=== PATIENT | female | born 1960 | race Two or more races ===

== ENCOUNTER 2024-07-09 10:56 | Inpatient (IN) | payer OTHER, MEDICAID, MEDICARE, SELFPAY ==
[2024-07-09] VITALS (11 sets, daily range): BP systolic 141–162; BP diastolic 54–77; PULSE 77–83; RESP 15–25; TEMP 36.6–37.2; O2SAT 88–96; BMI 29.7
--- NOTE | 2024-07-09 | XR_ITS ---
Examination: IR fluoroscopically guided placement left chest tube Fluoroscopy AP chest single view Exam date and time: July 09, 2024 1458 hours INDICATIONS: Significant pneumothorax post thoracentesis today shortness of breath TECHNIQUE AND FINDINGS: Informed consent provided. Timeout performed. Skin prepped over the left chest and sterile drape applied hand hygiene 1% lidocaine administered for local anesthesia Utilizing fluoroscopic guidance 9 Khmer chest tube placed in the left hemithorax in satisfactory position with significant reexpansion of the lung under fluoroscopic visualization Fluoroscopy 0.8 minute radiation dose 5.40 milligray 1 spot fluoroscopic chest film Estimated blood loss 0 cc IMPRESSION: Successful IR fluoroscopically guided placement left chest tube in satisfactory position
--- NOTE | 2024-07-09 11:16 | EKG_ITS ---
[facility] Test Date: 2024-07-09 Pat Name: ASHLEY PERRY Department: Room: - Gender: Female Digitizer Operator: : [id number] Requested By: Dawit Georges (CONCRETE WALL GRINDER OPERATOR) Order Number: [id number] Reading MD: Dawit Georges (CONCRETE WALL GRINDER OPERATOR) Measurements Intervals [place] Rate: 78 P: 41 TN: 131 QRS: -21 QRSD: 83 T: -43 QT: 407 QTc: 464 Interpretive Statements SINUS RHYTHM BORDERLINE LEFT AXIS DEVIATION [QRS AXIS < -20] LEFT VENTRICULAR HYPERTROPHY AND ST-T CHANGE [VOLTAGE CRITERIA PLUS ST/T ABNORMALITY] Compared to ECG 02/17/2023 18:04:56 ST (T wave) deviation now present /store/S0/[id number]/[id number].pdf
--- NOTE | 2024-07-09 11:16 | XR_ITS ---
Examination: PA lateral chest 2 views TECHNIQUE: Upright PA lateral chest 2 views Exam date and time: July 09, 2024 at 1137 hours INDICATIONS: Increasing shortness of breath for low O2 saturation today. FINDINGS: Mild chronic heart failure pattern, enlarged cardiac contour with prominent vascular congestion and septal edema at the right lung base Large left pleural effusion IMPRESSION: Mild heart failure pattern Large left pleural effusion
--- NOTE | 2024-07-09 11:21 | EDRME_ITS ---
Rapid Medical Screening Exam [facility] Arrival date/time: 07/09/24 10:56 64-year-old female ESRD on dialysis with CHF presents to the emergency department complains of shortness of breath intermittently for the last few months Chief Complaint: Shortness of Breath/Dyspnea Vital signs: Vital Signs Temperature 98.3 F 07/09/24 11:13 Pulse Rate 81 07/09/24 11:13 Respiratory Rate 25 H 07/09/24 11:13 Blood Pressure 141/54 H 07/09/24 11:13 Pulse Oximetry (%) 88 L 07/09/24 11:13 Oxygen Delivery Method Room Air 07/09/24 11:13
[2024-07-09 11:44] LABS: Basophils % (Auto) 0 % (0-2.5); Eosinophils # (Auto) 0.2 Thou/mm3 (0.0-0.5); Eosinophils % (Auto) 2 % (0-10); Hematocrit 35.9 % (36.0-46.0); Hemoglobin 11.7 g/dL (12.0-16.0); Immature Granulocytes % (Auto) 1 % (0-0); Immature Granulocytes Auto 0.05 Thou/mm3 (0.00-0.00); Lymphocytes # (Auto) 1.6 Thou/mm3 (1.0-4.8); Lymphocytes % (Auto) 16 % (10-50); Mean Corpuscular HGB Conc 32.6 g/dl (31.0-37.0); Mean Corpuscular Hemoglobin 29.2 pg (25.0-35.0); Mean Corpuscular Volume 90 fL (80-100); Monocytes # (Auto) 0.7 Thou/mm3 (0.0-0.8); Monocytes % (Auto) 7 % (0-12); Neutrophils # (Auto) 7.7 Thou/mm3 (1.8-7.7); Neutrophils % (Auto) 76 % (37-80); Nucleated Red Blood Cell % 0 /100 WBC (0); Platelet Count 225 Thou/mm3 (140-440); RDW Standard Deviation 44.7 fL (36.4-46.3); Red Blood Count 4.01 Miln/mm3 (4.00-5.20); White Blood Count 10.2 Thou/mm3 (3.6-11.0)
[2024-07-09 11:53] LABS: Partial Thromboplastin Time 28.1 Seconds (22.0-36.0)
[2024-07-09 11:55] LABS: Alanine Aminotransferase 9 U/L (10-49); Albumin, Serum 3.8 gm/dL (3.4-4.8); Alkaline Phosphatase 117 U/L (46-116); Anion Gap 8 (7-16); Aspartate Amino Transferase 19 U/L (0-34); BUN/Creatinine Ratio 6 Ratio (12-20); Bilirubin,Total 0.6 mg/dL (0.3-1.2); Blood Urea Nitrogen 33 mg/dL (9-23); Calcium 9.7 mg/dL (8.3-10.6); Calcium (Corrected) 9.9 mg/dL (8.5-10.1); Carbon Dioxide 31.5 mMol/L (20.0-31.0); Chloride 100 mMol/L (98-107); Estimated Creatinine Clearance 8.5 mL/min (>60); Globulin 3.8 gm/dL (2.3-3.5); Glucose 241 mg/dL (74-106); Magnesium 2.6 mg/dL (1.6-2.6); Osmolality,Calculated 292 (275-295); Potassium 4.9 mMol/L (3.4-5.1); Sodium 139 mMol/L (136-145); Total Protein 7.6 gm/dL (5.7-8.2); Troponin I < 0.020 ng/mL (0.0-0.045); eGFR 7 See Note
[2024-07-09 11:56] LABS: B-Type Natriuretic Peptide 1755 pg/mL (0-100)
--- NOTE | 2024-07-09 12:13 | XR_ITS ---
Examination: Ultrasound-guided left thoracentesis Ultrasound right hemithorax Ultrasound left hemithorax Exam date and time: Generally 04/09/2023 1250 hours INDICATIONS: Difficulty breathing this week, heart failure pattern with large left pleural effusion on chest x-ray today TECHNIQUE AND FINDINGS: Sonographic images right and left hemithoraces Large left pleural effusion No significant right pleural effusion Informed consent provided. Timeout performed. Skin prepped over the left hemithorax and sterile drape applied hand hygiene ultrasound sterile technique 1% lidocaine administered for local anesthesia Utilizing ultrasonographic guidance 5 Malian catheter placed in the left pleural space 1050 cc pleural fluid removed Estimated blood loss 0 cc IMPRESSION: Successful ultrasound-guided left thoracentesis, 1050 cc pleural fluid removed
--- NOTE | 2024-07-09 13:13 | XR_ITS ---
Examination: Upright PA chest single view TECHNIQUE: Upright PA chest single view Exam date and time: July 08, 2024 1319 hours INDICATIONS: Post left thoracentesis FINDINGS: Apical lateral left pneumothorax estimated 15% Pneumonia both lungs Normal heart size IMPRESSION: Apical lateral pneumothorax estimated 15%
--- NOTE | 2024-07-09 13:50 | EDNOTE_ITS ---
ED SOB =RME/HPI General Chief Complaint: Shortness of Breath/Dyspnea Stated Complaint: SOB WITH LOW O2 SAT; PCP SENT Time Seen by Provider: 07/09/24 13:45 Arrival date/time: 07/09/24 10:56 RME / HPI RME / HPI Narrative: 64-year-old female ESRD, hypertension, diabetes mellitus on dialysis with CHF presents to the emergency department complains of shortness of breath intermittently for the last few months. Also complained of nonproductive cough. She had dialysis yesterday. Patient denies any chest pain. Denies any fever. No medication was taken prior to arrival. Related Data Home Medications ?Medication ?Instructions ?Recorded ?Confirmed aspirin 81 mg tablet,delayed 81 mg PO QDAY 03/04/19 02/18/23 release (Aspir-) metoprolol succinate 50 mg 50 mg PO DAILY 04/12/22 02/18/23 tablet,extended release 24 hr cetirizine 10 mg tablet 10 mg PO DAILY 11/26/22 02/18/23 furosemide 20 mg tablet 20 mg PO DAILY 11/26/22 02/18/23 omeprazole 20 mg capsule,delayed 20 mg PO DAILY 11/26/22 02/18/23 release Allergies Allergy/AdvReac Type Severity Reaction Status Date / Time No Known Allergies Allergy Verified 07/09/24 10:58 Review of Systems Review of Systems Narrative Review of Systems: Review of system reviewed and within normal limits except mentioned in HPI ED Exam Narrative Physical exam: VITAL SIGNS: Reviewed. GENERAL APPEARANCE: Alert and interactive, follows commands, no acute distress, HEAD AND FACE: Non-traumatic. ENT: PERRL, pink conjunctivitis, eyelid no trauma, Mucous membrane moist. NECK: Supple, nontender, no nuchal rigidity. CHEST: No tenderness, no crepitus, no paradoxical movement, no retractions. LUNGS:Symmetric, + rales, no wheezing, no ronchi, no stridor, decreased breath sound on the left lung HEART: Regular rate, regular rhythm, no murmur, no gallops. ABDOMEN: Soft, positive bowel sounds, nondistended, no guarding, nontender, no rebound, no masses, RECTAL: Deferred. GENITAL: Deferred. NEUROLOGICAL: Gross motor function intact sensory function intact, Appropriate for age. MUSCULOSKELETAL: low back nontender, full range of motion. EXTREMITIES: Positive thrill, left AV fistula, nontender, full range of motion. SKIN: Color pink, dry, no rash, no lacerations, no abrasions, no contusions. LYMPHATICS: Deferred. Course Quality Measures none Orders Category Date Time Status COVID-19 Screening Questionnaire NOW Care 07/09/24 16:05 Active Chest Tube to Low Suction Routine Care 07/09/24 16:03 Ordered Decision to Admit X1 Care 07/09/24 16:05 Active EKG (ED ONLY) *Do not use* NOW Care 07/09/24 11:16 Completed Consult to Nephrology Stat Cons 07/09/24 15:59 Ordered EKG (ED Only) Stat Exams 07/09/24 11:16 Draft IR chest tube insertion Stat Exams 07/09/24 Taken US thoracentesis Stat Exams 07/09/24 12:13 Completed XR chest 1V Stat Exams 07/09/24 13:58 Completed XR chest 1V portable Routine Exams 07/09/24 19:00 Ordered XR chest 1V post procedure Stat Exams 07/09/24 13:13 Completed XR chest 2V Stat Exams 07/09/24 11:16 Completed Amylase,Pleural Fluid Routine Lab 07/09/24 13:49 Ordered B-Type Natriuretic Peptide Stat Lab 07/09/24 11:31 Completed Body Fld Cult w Tita & Gram St Routine Lab 07/09/24 13:49 Ordered CBC Stat Lab 07/09/24 11:31 Completed Comprehensive Metabolic Panel Stat Lab 07/09/24 11:31 Completed Glucose,Pleural Fluid Routine Lab 07/09/24 13:49 Ordered LDH,Pleural Fluid Routine Lab 07/09/24 13:49 Ordered Magnesium Stat Lab 07/09/24 11:31 Completed Partial Thromboplastin Time Stat Lab 07/09/24 11:31 Completed Pleural Fld Cell Count Diff Routine Lab 07/09/24 13:49 Ordered Protein Total,Pleural Fluid Routine Lab 07/09/24 13:49 Ordered Prothrombin Time with INR Stat Lab 07/09/24 11:31 Completed Troponin I Stat Lab 07/09/24 11:31 Completed Lidocaine 1% Pf 30 ml [Xylocaine 1% Pf 30 ml] Med 07/09/24 12:40 Discontinued 30 ml .ROUTE .STK-MED ONE Lidocaine 1% Pf 30 ml [Xylocaine 1% Pf 30 ml] Med 07/09/24 15:18 Discontinued 30 ml .ROUTE .STK-MED ONE Lidocaine 1% Pf 30 ml [Xylocaine 1% Pf 30 ml] Med 07/09/24 15:30 Discontinued 30 ml INFL X1 ONE NALOXONE INJ (Vial) [Narcan Inj (Vial)] Med 07/09/24 15:17 Discontinued 0.4 mg .ROUTE .STK-MED ONE Ondansetron Inj [Zofran Inj] Med 07/09/24 15:18 Discontinued 4 mg .ROUTE .STK-MED ONE fentaNYL INJ [Sublimaze Inj] Med 07/09/24 15:18 Discontinued 200 mcg .ROUTE .STK-MED ONE fentaNYL INJ [Sublimaze Inj] Med 07/09/24 15:11 Discontinued 50 mcg IVP X1 ONE fentaNYL INJ [Sublimaze Inj] Med 07/09/24 15:32 Discontinued 75 mcg IVP X1 ONE Vital Signs Vital signs: Vital Signs Temperature 98.3 F 07/09/24 11:13 Pulse Rate 81 07/09/24 11:13 Respiratory Rate 25 H 07/09/24 11:13 Blood Pressure 141/54 H 07/09/24 11:13 Pulse Oximetry (%) 88 L 07/09/24 11:13 Oxygen Delivery Method Room Air 07/09/24 11:13 Shortness of Breath / Dyspnea MDM Narrative MDM Narrative:: 64-year-old female ESRD, hypertension, diabetes mellitus on dialysis with CHF presents to the emergency department complains of shortness of breath intermittently for the last few months. Also complained of nonproductive cough. She had dialysis yesterday. Patient denies any chest pain. Denies any fever. No medication was taken prior to arrival. Chest x-ray showed large pleural effusion on the left. Patient underwent thoracentesis, was able to remove 1025 cc. Patient was noted to be satting 88% on room air. Currently satting 96% on 2 L. Initial postthoracentesis x-ray showed 5% pneumothorax, after few hours, repeat chest x-ray showed worsening of pneumothorax this time 25% I spoke with Dr Tovar, IR, radiologist, and for chest tube insertion Spoke with Dr. Roman, communications systems engineer, and will see the patient thank you Dr. Patient data External records reviewed:: None Clinical information provided by:: patient and family Social determinants that could affect healthcare access:: none Patient has the following chronic illnesses:: Diabetes hypertension ESRD How is presenting disease/condition affected by chronic disease/condition?: exacerbated by Evaluation data The following diagnostics were reviewed and interpreted by me:: lab results and radiology exam(s) Lab and/or radiology exams considered but not ordered:: None Interpretation Summary: See MDM for the results Medications / Prescriptions Medications or Prescriptions considered but not ordered:: None Medication administrations:: Medication Administration History Discontinued Medications Fentanyl Citrate (Fentanyl Cit Inj 50 Mcg/Ml Amp 2ml) 50 mcg IVP X1 ONE Stop: 07/09/24 15:12 Last Admin: 07/09/24 16:03 Dose: Not Given Documented By: EC Non-Admin Reason: Cancelled by Provider Fentanyl Citrate (Fentanyl Cit Inj 50 Mcg/Ml Amp 2ml) Confirm Administered Dose 200 mcg .ROUTE .STK-MED ONE Stop: 07/09/24 15:19 Last Admin: 07/09/24 16:03 Dose: Not Given Documented By: EC Non-Admin Reason: Duplicate Medication on eMAR Fentanyl Citrate (Fentanyl Cit Inj 50 Mcg/Ml Amp 2ml) 75 mcg IVP X1 ONE Stop: 07/09/24 15:33 Last Admin: 07/09/24 15:32 Dose: 75 mcg Documented By: EC Lidocaine HCl (Lidocaine Inj Pf 1% 30 Ml Vial) Confirm Administered Dose 30 ml .ROUTE .STK-MED ONE Stop: 07/09/24 12:41 Last Admin: 07/09/24 16:03 Dose: Not Given Documented By: EC Non-Admin Reason: Duplicate Medication on eMAR Lidocaine HCl (Lidocaine Inj Pf 1% 30 Ml Vial) Confirm Administered Dose 30 ml .ROUTE .STK-MED ONE Stop: 07/09/24 15:19 Last Admin: 07/09/24 16:03 Dose: Not Given Documented By: EC Non-Admin Reason: Duplicate Medication on eMAR Lidocaine HCl (Lidocaine Inj Pf 1% 30 Ml Vial) 30 ml INFL X1 ONE Stop: 07/09/24 15:31 Last Admin: 07/09/24 16:05 Dose: 30 ml Documented By: EC Comments: placed on sterile field Naloxone HCl (Naloxone Inj 0.4 Mg/Ml Vial) Confirm Administered Dose 0.4 mg .ROUTE .STK-MED ONE Stop: 07/09/24 15:18 Last Admin: 07/09/24 16:03 Dose: Not Given Documented By: EC Non-Admin Reason: Duplicate Medication on eMAR Ondansetron HCl (Ondansetron Inj 2 Mg/Ml Inj 2 Ml) Confirm Administered Dose 4 mg .ROUTE .STK-MED ONE Stop: 07/09/24 15:19 Last Admin: 07/09/24 16:03 Dose: Not Given Documented By: EC Non-Admin Reason: Duplicate Medication on eMAR Zofran, fentanyl, Consultations Consultation(s) initiated? (list below): Yes Consultation #1 (Physician, Specialty, Details): Dr. Roman communications systems engineer discussed the case thank you DrAbdon Diagnosis Shortness of Breath Differential Diagnosis: other (Shortness of breath, fluid overload, pleural effusion, pneumothorax) Most likely diagnosis given after review of the tests above:: ESRD, pneumothorax Admission Indicated Admission indicated?: indicated Explain why admission is indicated or not indicated:: Patient is to be admitted for further management Admission Request Was there a request for admission?: Yes Admission Attestation Admission request attestation: Discussed case with [Dr. Torres] from Hospitalist service regarding admission. Discussed patients ED course, exam findings, labs, and radiology results. The Hospitalist [agrees,] to accept the patient for admission. Disposition Plan Disposition Plan: Admit Discharge Plan Plan Patient Disposition: Admit Acute Care w/in Hospital Disposition Comment: Stable Prescriptions/Referrals Prescriptions/Med Rec: No Action aspirin [Aspir-81] 81 mg Tablet,Delayed Release (Dr/Ec) 81 mg PO QDAY Hold Instructions: Resume on 04/15/22. metoprolol succinate 50 mg tablet extended release 24 hr 50 mg PO DAILY cetirizine 10 mg tablet 10 mg PO DAILY omeprazole 20 mg capsule,delayed release(DR/EC) 20 mg PO DAILY furosemide 20 mg tablet 20 mg PO DAILY Referrals: Isaias Pop PA-C [Primary Care Provider] - Problem List Clinical Impression: ESRD (end stage renal disease) on dialysis, Pneumothorax Patient/Caregiver Discharge Instructions Education Materials: Thoracentesis Dc Print Language: Portuguese Stand Alone Forms: [facility] Award Info., Patient Portal Info Letter
--- NOTE | 2024-07-09 13:58 | XR_ITS ---
Examination: AP chest single view TECHNIQUE: AP portable chest single view Exam date and time: July 09, 2024 1428 hours INDICATIONS: Postthoracentesis pneumothorax FINDINGS: Left apical lateral inferior pneumothorax, estimated 25% Heart is midline Bilateral pneumonia IMPRESSION: Left pneumothorax, estimated 25%, suggest continued follow-up
--- NOTE | 2024-07-09 15:18 | PC.NURSE ---
PT TO SPECIAL PROCEDURES AT THIS TIME. REPORT GIVEN TO ENEIDA
[2024-07-09] MEDS: fentaNYL CIT INJ 50 mCg/ML AMP 2ML 75 MCG IVP (15:32)
[2024-07-09] MEDS: LIDOCAINE INJ PF 1% 30 ML VIAL INFL (16:05)
--- NOTE | 2024-07-09 16:45 | PC.NURSE ---
HOSPITALIST AT BEDSIDE TO SEE PT
--- NOTE | 2024-07-09 17:11 | ESHP_ITS ---
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 Patient was found to have large left-sided pleural effusion on chest x-ray. Thoracentesis was performed for pleural effusion and she got iatrogenic pneumothorax due to thoracentesis. Serial chest x-rays were performed which showed increase in pneumothorax to 25% therefore the chest tube was placed within the waterseal. Vitals showed mildly elevated blood pressure. She was saturating well on 5 L NC. She requires oxygen as she was hypoxic after getting iatrogenic pneumothorax. Daughter reported that patient does have hypoxia/desaturating at home as well and does not use home oxygen. Labs showed stable white count. Chemistry panel showed renal functions consistent with ESRD. Patient still makes a little bit urine however denied any other symptoms. Patient did had follow-up with [facility] and they perform workup for cocci and TB that was negative. 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 Her daughter reported that she had pleural effusion from couple of months that has been seen on chest x-ray. She denied any lower extremity edema. Patient is currently AOx3. Will admit the patient and continue with serial chest x-rays in the morning and evaluate her for improvement in pneumothorax. Continue oxygen as needed. [employer] Therapist has been consulted as patient is scheduled to get dialysis per schedule days tomorrow morning. Home medications were reconciled. All labs and orders were reviewed. I saw and examined the patient, and I agree with current management stated by Dr Bhanu MD,PGY1. Plan of care was discussed with the attending physician and resident physician. Disclaimer: Despite multiple revisions, due to the dictation software being used, the document bellow may not be free of grammatical errors including phonetic/typographic errors. However, this does not deter from our commitment to providing health care in the patient's best interest in mind. Dr. Lisa MD, PGY 2 Documentation for date of: 07/09/24 HPI History of Present Illness Chief complaint: Shortness of breath History of present illness: 64 y/o F with PMHx significant for ESRD (dialysis M/W/F), insulin-dependent diabetes, HTN presents with chief complaint of shortness of breath since April. Since April patient has noted progressive shortness of breath. She has been seen multiple times in outpatient clinic, has received serial chest x-rays and was told she has an accumulation of fluid. Patient avoided ER unitl her PCP told her she required further treatment in the hospital. Complaining of pleuritic pain. Denies fevers, chills, nausea, vomiting. ED COURSE: Labs significant for: WBCs 10.2, hemoglobin 11.7, outpatient testing for cocci negative. Imaging significant for: Chest x-ray showing significant left-sided pleural effusion. Patient received thoracentesis in ED, drained 1 L of fluid, appropriate studies ordered. Follow-up chest x-ray showed pneumothorax, expanded from 15% to 25%. Chest tube placed in the ED. PMH: ESRD, diabetes, hypertension PSH: Left upper arm fistula placement SH: Denies smoking, alcohol, recreational drug use Allergies:?NKDA Medications: Lovastatin, Basaglar, metoprolol, amlodipine, hydralazine, aspirin, aspart Review of Systems Review of Systems Systems Reviewed: All systems reviewed, normal except as documented Past Medical History Past Medical History Comments PMH COMMENT: PMH: ESRD, diabetes, hypertension PSH: Left upper arm fistula placement SH: Denies smoking, alcohol, recreational drug use Allergies:?NKDA Medications: Lovastatin, Basaglar, metoprolol, amlodipine, hydralazine, aspirin, aspart Exam Vital Signs Temp Pulse Resp BP Pulse Ox O2 Del Method O2 Flow Rate 98.3 F 82 17 156/75 H 93 L Nasal Cannula 5 07/09/24 11:13 07/09/24 15:39 07/09/24 15:39 07/09/24 15:39 07/09/24 15:39 07/09/24 15:39 07/09/24 15:39 Narrative Exam PE: Gen: Well-developed and well-nourished. HEENT: NCAT, PERRLA, EOMI, MMM, anicteric conjunctivae. CVS: normal S1 and S2. RRR. No M/R/G. Resp: CTA B/L. No rhonchi, rales, crackles or wheezing. Notably diminished breath sounds left upper lung. Left-sided chest tube. Abd: soft, non-tender, non-distended. BS+ in all 4 quadrants. MSK: Good ROM in BUE & BLE. No edema or rash. Left upper arm fistula. Neuro: CN II-XII grossly intact. Strength 5/5 in BUE & BLE. Alert and oriented x3. Psych: appropriate mood and affect. Results: Labs 07/10/24 05:39 07/10/24 05:39 Labs: Short CBC 07/09/24 Range/Units 11:31 WBC 10.2 (3.6-11.0) Thou/mm3 Hgb 11.7 L (12.0-16.0) g/dL Hct 35.9 L (36.0-46.0) % Plt Count 225 (140-440) Thou/mm3 BMP 07/09/24 11:31 Sodium 139 Potassium 4.9 Chloride 100 Carbon Dioxide 31.5 H BUN 33 H Creatinine 6.0 H* Glucose 241 H Calcium 9.7 Cardiac Enzymes 07/09/24 Range/Units 11:31 Troponin I < 0.020 (0.0-0.045) ng/mL Liver Function 07/09/24 Range/Units 11:31 Total Bilirubin 0.6 (0.3-1.2) mg/dL AST 19 (0-34) U/L ALT 9 L (10-49) U/L Alkaline Phosphatase 117 H (46-116) U/L Albumin 3.8 (3.4-4.8) gm/dL Quality Measures Quality Measures VTE prophylaxis Medications Home Medications and Allergies Home Medications ?Medication ?Instructions ?Recorded ?Confirmed ?Type aspirin 81 mg tablet,delayed 81 mg PO QDAY 03/04/19 07/10/24 History release (Aspir-) metoprolol succinate 50 mg 50 mg PO DAILY 04/12/22 07/10/24 History tablet,extended release 24 hr hydralazine 25 mg tablet 25 mg PO TID 07/10/24 07/10/24 History Allergies Allergy/AdvReac Type Severity Reaction Status Date / Time No Known Allergies Allergy Verified 07/09/24 10:58 Visit Medications Acetaminophen (Acetaminophen 325 Mg Tablet) 650 mg PO Q6H PRN PRN Reason: Fever >100.4 or pain Stop: 08/08/24 16:46 Dextrose (Dextrose 50%-Water Inj 50 Ml Syringe) 25 ml IV Q15MIN PRN PRN Reason: BG 50-70 responsive npo pt Stop: 08/08/24 16:46 Dextrose (Dextrose 50%-Water Inj 50 Ml Syringe) 50 ml IV Q15MIN PRN PRN Reason: BG <50 OR BG <70 & pt unresponsive Stop: 08/08/24 16:46 Glucagon (Glucagon Inj 1 Mg Vial) 1 mg IM Q15MIN PRN PRN Reason: BG <70, and no IV access Heparin Sodium (Porcine) (Heparin Sod Inj 5000 Unit/Ml Vial) 5,000 unit SC Q12HR SILVANA Stop: 07/23/24 20:59 Insulin Glargine (Insulin Glargine (Lantus) 5 Unit/0.05 Ml (Per 5 Units)) 10 unit SC HS [facility] Stop: 08/08/24 20:59 Insulin Human Lispro (Insulin Lispro (Admelog) 1 Unit/0.01 Ml Unit) 0 unit SC AC [facility]; Protocol Stop: 08/08/24 16:59 Insulin Human Lispro (Insulin Lispro (Admelog) 1 Unit/0.01 Ml Unit) 6 unit SC AC [facility] Stop: 08/08/24 16:59 Magnesium Hydroxide (Milk Of Magnesia Susp 30 Ml Udc) 30 ml PO QDAY PRN; Protocol PRN Reason: CONSTIPATION Stop: 08/08/24 16:46 Ondansetron HCl (Ondansetron Inj 2 Mg/Ml Inj 2 Ml) 4 mg IV Q6H PRN; Protocol PRN Reason: NAUSEA OR VOMITING Stop: 08/08/24 16:46 Sennosides (Senna Tablet) 1 tab PO QDAY PRN; Protocol PRN Reason: constipation Stop: 08/08/24 16:46 Discontinued Medications Fentanyl Citrate (Fentanyl Cit Inj 50 Mcg/Ml Amp 2ml) 50 mcg IVP X1 ONE Stop: 07/09/24 15:12 Last Admin: 07/09/24 16:03 Dose: Not Given Fentanyl Citrate (Fentanyl Cit Inj 50 Mcg/Ml Amp 2ml) 75 mcg IVP X1 ONE Stop: 07/09/24 15:33 Last Admin: 07/09/24 15:32 Dose: 75 mcg Lidocaine HCl (Lidocaine Inj Pf 1% 30 Ml Vial) 30 ml INFL X1 ONE Stop: 07/09/24 15:31 Last Admin: 07/09/24 16:05 Dose: 30 ml Assessment & Plan Plan 64 y/o F with PMHx significant for ESRD (dialysis M/W/F), insulin-dependent diabetes, HTN presents with chief complaint of shortness of breath since April, admitted for pneumothorax s/p thoracentesis. #Pneumothorax s/p thoracentesis Patient presented with shortness of breath and progressive pleural effusion since April. In ED, thoracentesis performed with 1 L drained. Follow-up chest x-ray showed apical left pneumothorax of 15%, repeat chest x-ray showed pneumothorax and 25%. Chest tube was then placed without incident. Air bubbles present in chest tube. Patient denies chest pain. Outpatient testing for cocci negative. Pleural fluid sent for fluid studies. -Monitor chest tube -Daily chest x-rays -O2 as needed to maintain saturation 100% -Flu test ordered, follow -Echo ordered, follow-up -Follow-up fluid studies -Tramadol 50mg PO q4hr PRN for pain #ESRD Patient receives dialysis M/W/F, with Dr. Roman. -Nephro consulted -Dialysis as per usual schedule -Avoid nephrotoxins -Renally dose meds #DM, insulin-dependent Patient has history as stated. On home Basaglar 10 at bedtime, aspart 6 units 3 times daily with meals. Last A1c 6.4% as of 11/24/2022. -A1c ordered, follow-up -Home regimen: Lantus 10 at bedtime, lispro 6 AC -ISS #Hypertension Patient has history as stated. Patient takes metoprolol, amlodipine, hydralazine outpatient. -Resume home meds: Amlodipine 10 daily, hydralazine 25 TID DVT prophylaxis: Heparin GI prophylaxis: None Diet: Carb consistent, cardiac, renal Lines: Peripheral IV, chest tube Code status: Full code Plan of care discussed with senior resident Dr. Gonzalez PGY?[address] Morales. Jovan Drummond MD PGY-1 Attending Provider Attestation/Addendum I have examined the patient, reviewed labs and imaging findings, discussed the case with the resident(s), and reviewed entered orders. I agree with the plan of care as outlined in this note, with these additional summaries/recommendations: Patient is a 64-year-old female with a medical history of end-stage renal disease on hemodialysis Saturday, diabetes mellitus type 2, and primary hypertension who presented to [facility] emergency department on 07/09/2024 with chief complaint of shortness of breath. Patient was found to have large pleural effusion in the emergency department and underwent thoracentesis. Patient developed pneumothorax and hospitalist team was consulted for continuation of care. Patient will be admitted for acute hypoxic respiratory failure secondary to pneumothorax. Chest tube was placed in the emergency department on waterseal. Continue supplemental oxygen and wean as tolerated. Repeat chest x-ray in AM. Fluid studies indicate transudative effusion and cultures were taken. Consult nephrology for inpatient hemodialysis. Start basal and bolus insulin for diabetes mellitus type 2. A1c ordered. Resume home antihypertensives. Tramadol as needed for pain management. Patient updated on the plan and in agreement. Repeat hematology and chemistry panel in AM. Dr. Morales
[2024-07-09 17:14] LABS: Pleural Fluid Appearance Hazy; Pleural Fluid Color Yellow; Pleural Fluid WBC 292 /cmm
[2024-07-09 17:15] LABS: Pleural Fluid Mononuclear 92 %; Pleural Fluid Polynuclear 8 %; Pleural Fluid RBC 17000 /cmm
[2024-07-09 17:25] LABS: Amylase,Pleural Fluid 49 IU/L; Glucose,Pleural Fluid 190 mg/dL; LDH,Pleural Fluid 132 IU/L; Protein Total,Pleural Fluid 3.1 g/dL
--- NOTE | 2024-07-09 18:08 | PC.NURSE ---
PT C/O PAIN TO LEFT SIDE WHERE CHEST TUBE IS IN PLACE. DR HAND AT BEDSIDE. PER DR HAND HE WILL PUT IN ORDERS FOR PAIN MEDICATION.
[2024-07-09 18:27] LABS: LDH (Lactate Dehydrogenase) 237 U/L (120-246)
[2024-07-09] MEDS: traMADol HCL 50 MG TABLET PO (18:43)
--- NOTE | 2024-07-09 19:00 | XR_ITS ---
Examination: AP chest single view Technique one AP portable upright chest single view Exam date and time: July 09, 2024 1809 hours Comparison July 09, 2024 1428 hrs. Indications: Significant pneumothorax postthoracentesis today, post chest tube placement Findings: Left chest tube satisfactory position. Left lung Heart failure with prominent vascular congestion and bilateral pneumonia Impression: Left chest tube satisfactory position Satisfactory expansion left lung
[2024-07-09 19:18] LABS: Influenza A Ag Negative; Influenza B Ag Negative
--- NOTE | 2024-07-09 19:52 | PC.NURSE ---
In to assess pt at this time. Pt lying in gurney sleeping, comfortable. NAD noted. a/ox3, gcs 15. Pt states pain is improving rating 6/10. Pt updated on plan of care. call light within reach.
--- NOTE | 2024-07-09 20:30 | PC.NURSE ---
First contact with pt in Room 6, pt in gown, connected to bedside alarm security or surveillance monitor, white board updated, call light within reach. Pt's daughter currently at bedside.
--- NOTE | 2024-07-09 20:35 | PC.NURSE ---
Pt provided with a sandwich, jello, pudding and PO fluids, as requested. Family member at bedside observed feeding pt.
[2024-07-09] MEDS: HEPARIN SOD INJ 5000 UNIT/ML VIAL SC (20:40)
[2024-07-09] MEDS: INSULIN GLARGINE (Lantus) 5 UNIT/0.05 ML (PER 5 UNITS) 10 UNIT SC (20:41)
[2024-07-09] MEDS: hydrALAZINE HCL 25 MG TABLET PO (21:09)
[2024-07-10] VITALS (40 sets, daily range): BP systolic 92–175; BP diastolic 56–83; PULSE 73–82; RESP 16–34; TEMP 36.2–37.1; O2SAT 94–97
[2024-07-10] MEDS: hydrALAZINE HCL 25 MG TABLET PO ×3 (06:01→21:25)
[2024-07-10] MEDS: traMADol HCL 50 MG TABLET PO ×2 (06:01→12:06)
[2024-07-10 06:13] LABS: Basophils % (Auto) 0 % (0-2.5); Eosinophils # (Auto) 0.2 Thou/mm3 (0.0-0.5); Eosinophils % (Auto) 1 % (0-10); Hematocrit 35.8 % (36.0-46.0); Hemoglobin 11.7 g/dL (12.0-16.0); Immature Granulocytes % (Auto) 0 % (0-0); Immature Granulocytes Auto 0.03 Thou/mm3 (0.00-0.00); Lymphocytes # (Auto) 2.1 Thou/mm3 (1.0-4.8); Lymphocytes % (Auto) 17 % (10-50); Mean Corpuscular HGB Conc 32.7 g/dl (31.0-37.0); Mean Corpuscular Hemoglobin 28.8 pg (25.0-35.0); Mean Corpuscular Volume 88 fL (80-100); Monocytes # (Auto) 0.9 Thou/mm3 (0.0-0.8); Monocytes % (Auto) 7 % (0-12); Neutrophils % (Auto) 74 % (37-80); Nucleated Red Blood Cell % 0 /100 WBC (0); Platelet Count 218 Thou/mm3 (140-440); RDW Standard Deviation 43.8 fL (36.4-46.3); Red Blood Count 4.06 Miln/mm3 (4.00-5.20); White Blood Count 12.2 Thou/mm3 (3.6-11.0)
[2024-07-10 06:15] LABS: Glucose Estimated Average 134 mg/dL (80-131); Hemoglobin A1C 6.3 % Hgb (4.8-6.0)
[2024-07-10 06:20] LABS: Partial Thromboplastin Time 28.5 Seconds (22.0-36.0); Prothrombin Time 10.8 Seconds (9.0-12.2)
--- NOTE | 2024-07-10 06:58 | PD.NEPHCONS ---
History of Present Illness Data of Consult Consult date: 07/09/24 Requesting Physician: Willard Morales MD Primary Care Provider: Isaias Pop PA-C Consult Narrative History of present illness: 66-year-old female with past medical history of hypertension, possible heart failure, ESRD M/W/F follows presented with complaint of worsening shortness of breath. Nephrology is consulted to arrange HD while pt is hospital Pt denies any fever. Pt denies any nauea and vomiting. cc:: cc: Willard Morales MD Review of Systems Review of Systems Systems Reviewed: All systems reviewed, normal except as documented Meds Home Medications and Allergies Home Medications ?Medication ?Instructions ?Recorded ?Confirmed ?Type aspirin 81 mg tablet,delayed 81 mg PO QDAY 03/04/19 07/10/24 History release (Aspir-) metoprolol succinate 50 mg 50 mg PO DAILY 04/12/22 07/10/24 History tablet,extended release 24 hr hydralazine 25 mg tablet 25 mg PO TID 07/10/24 07/10/24 History Allergies Allergy/AdvReac Type Severity Reaction Status Date / Time No Known Allergies Allergy Verified 07/09/24 10:58 Exam Vital Signs Temp Pulse Resp BP Pulse Ox O2 Del Method O2 Flow Rate 98.4 F 80 18 152/74 H 96 Nasal Cannula 2 07/10/24 06:00 07/10/24 06:30 07/10/24 06:30 07/10/24 06:30 07/10/24 06:30 07/10/24 06:30 07/10/24 06:30 Narrative Exam Heart s1,s2 chest susan basal crackles plus 1 edema Results Labs 07/10/24 05:39 07/09/24 11:31 Labs: Short CBC 07/09/24 07/10/24 Range/Units 11:31 05:39 WBC 10.2 12.2 H (3.6-11.0) Thou/mm3 Hgb 11.7 L 11.7 L (12.0-16.0) g/dL Hct 35.9 L 35.8 L (36.0-46.0) % Plt Count 225 218 (140-440) Thou/mm3 BMP 07/09/24 11:31 Sodium 139 Potassium 4.9 Chloride 100 Carbon Dioxide 31.5 H BUN 33 H Creatinine 6.0 H* Glucose 241 H Calcium 9.7 Cardiac Enzymes 07/09/24 Range/Units 11:31 Troponin I < 0.020 (0.0-0.045) ng/mL Liver Function 07/09/24 Range/Units 11:31 Total Bilirubin 0.6 (0.3-1.2) mg/dL AST 19 (0-34) U/L ALT 9 L (10-49) U/L Alkaline Phosphatase 117 H (46-116) U/L Albumin 3.8 (3.4-4.8) gm/dL Assessment & Plan Assessment and plan (1) ESRD (end stage renal disease) on dialysis: Status: Acute Assessment and plan: Will arrange HD on Saturday c/w HD MWF schedule (2) Acute exacerbation of CHF (congestive heart failure): Status: Acute (3) Pneumothorax: Status: Acute
--- NOTE | 2024-07-10 07:00 | XR_ITS ---
Examination: AP chest single view Technique one AP portable semiupright chest single view Exam date and time: July 10, 2024 0714 hrs. Comparison July 09, 2024 Indications: Pneumothorax postthoracentesis yesterday, post chest tube placement Findings: Left chest tube satisfactory position Full expansion left lung Moderate CHF, enlarged cardiac contour with prominent vascular congestion Perihilar edema Moderate osteopenia Impression: Left chest tube satisfactory position, full expansion both lungs
[2024-07-10 07:08] LABS: Alanine Aminotransferase 8 U/L (10-49); Albumin, Serum 3.9 gm/dL (3.4-4.8); Albumin/Globulin Ratio 1.1 (1.2-2.2); Alkaline Phosphatase 112 U/L (46-116); Anion Gap 9 (7-16); Aspartate Amino Transferase 12 U/L (0-34); BUN/Creatinine Ratio 6 Ratio (12-20); Bilirubin,Total 0.4 mg/dL (0.3-1.2); Blood Urea Nitrogen 44 mg/dL (9-23); Calcium 9.4 mg/dL (8.3-10.6); Calcium (Corrected) 9.5 mg/dL (8.5-10.1); Carbon Dioxide 27.8 mMol/L (20.0-31.0); Chloride 99 mMol/L (98-107); Estimated Creatinine Clearance 7.3 mL/min (>60); Globulin 3.4 gm/dL (2.3-3.5); Glucose 74 mg/dL (74-106); Magnesium 2.7 mg/dL (1.6-2.6); Osmolality,Calculated 282 (275-295); Phosphorous 5.2 mg/dL (2.4-5.1); Potassium 5.1 mMol/L (3.4-5.1); Sodium 136 mMol/L (136-145); Total Protein 7.3 gm/dL (5.7-8.2); eGFR 6 See Note
[2024-07-10] MEDS: HEPARIN SOD INJ 5000 UNIT/ML VIAL SC ×2 (08:40→21:25)
[2024-07-10] MEDS: amLODIPine BESYLATE 5 MG TABLET 10 MG PO (12:06)
--- NOTE | 2024-07-10 13:30 | XR_ITS ---
Examination: AP chest single view Technique one AP portable upright chest single view Exam date and time: July 10, 2024 1012 hours Comparison July 10, 2024 0714 hours INDICATIONS: History left pleural fluid, pneumothorax post left thoracentesis yesterday, post chest tube placement FINDINGS: Left chest tube satisfactory position Satisfactory expansion left lung Heart failure pattern again noted with vascular congestion and perihilar edema IMPRESSION: Left chest tube satisfactory position Satisfactory expansion left lung
--- NOTE | 2024-07-10 13:37 | ESPR_ITS ---
<Statement entered by Vasu Gonzalez MD - 07/10/24 17:07> Patient was seen and examined at the bedside. Chest x-ray this morning showed improvement in pneumothorax and there was adequate expansion of the left lung. Chest tube was removed. Postprocedure chest x-ray pending. Patient is currently saturating well on 2 L NC. Blood pressure remained stable. A1c came 6.3. Patient received dialysis per schedule. Anticipating discharge tomorrow. All labs and orders were reviewed. I saw and examined the patient, and I agree with current management stated by Dr Bhanu MD,PGY1. Plan of care was discussed with the attending physician and resident physician. Disclaimer: Despite multiple revisions, due to the dictation software being used, the document bellow may not be free of grammatical errors including phonetic/typographic errors. However, this does not deter from our commitment to providing health care in the patient's best interest in mind. Dr. Lisa MD, PGY 2 Documentation for date of: 07/10/24 Subjective Subjective Interval history: No overnight events. Patient seen and examined at bedside. Patient resting comfortably, complains of mild pleuritic pain left side, unchanged. Denies fever, chills, shortness of breath. Chest x-ray showed resolution of pneumothorax, did not recur after clamping. Chest tube pulled, postprocedure x-ray pending. Exam Vital Signs Temp Pulse Resp BP Pulse Ox O2 Del Method O2 Flow Rate 97.6 F 82 18 160/69 H 96 Nasal Cannula 2 07/10/24 10:54 07/10/24 12:06 07/10/24 10:54 07/10/24 12:06 07/10/24 10:54 07/10/24 06:30 07/10/24 10:54 Narrative Exam PE: Gen: Well-developed and well-nourished. HEENT: NCAT, PERRLA, EOMI, MMM, anicteric conjunctivae. CVS: normal S1 and S2. RRR. No M/R/G. Resp: CTA B/L. No rhonchi, rales, crackles or wheezing. Breath sounds equal throughout all lung burleson. Left-sided chest tube. Abd: soft, non-tender, non-distended. BS+ in all 4 quadrants. MSK: Good ROM in BUE & BLE. No edema or rash. Left upper arm fistula. Neuro: CN II-XII grossly intact. Strength 5/5 in BUE & BLE. Alert and oriented x3. Psych: appropriate mood and affect. Objective Labs 07/11/24 05:18 07/11/24 05:18 Labs: Laboratory Results - last 24 hr 07/09/24 07/09/24 07/09/24 11:31 16:47 18:07 WBC RBC Hgb Hct MCV MCH MCHC RDW Std Deviation Plt Count Neut % (Auto) Lymph % (Auto) [place] % (Auto) Eos % (Auto) Baso % (Auto) Neut # (Auto) Lymph # (Auto) [place] # (Auto) Eos # (Auto) Baso # (Auto) Immature Gran # (Auto) Absolute Nucleated RBC Immature Gran % Nucleated RBC % PT INR APTT Sodium Potassium Chloride Carbon Dioxide Anion Gap BUN Creatinine Estim Creat Clear Calc eGFR BUN/Creatinine Ratio Glucose Estimated Ave Glu mg/dL Hemoglobin A1c Calculated Osmolality Calcium Corrected Calcium Phosphorus Magnesium Total Bilirubin AST ALT Alkaline Phosphatase Lactate Dehydrogenase 237 Total Protein Albumin Globulin Albumin/Globulin Ratio Pleural Color Yellow Pleural Appearance Hazy Pleural WBC 292 Pleural RBC 26512 Pleural Polynuclear WBC 8 Pleural Mononuclear WBC 92 Pleural Total Protein 3.1 Pleural LDH 132 Pleural Glucose 190 Pleural Amylase 49 Influenza A (Rapid) Negative Influenza B (Rapid) Negative 07/10/24 05:39 WBC 12.2 H RBC 4.06 Hgb 11.7 L Hct 35.8 L MCV 88 MCH 28.8 MCHC 32.7 RDW Std Deviation 43.8 Plt Count 218 Neut % (Auto) 74 Lymph % (Auto) 17 [place] % (Auto) 7 Eos % (Auto) 1 Baso % (Auto) 0 Neut # (Auto) 9.0 H Lymph # (Auto) 2.1 [place] # (Auto) 0.9 H Eos # (Auto) 0.2 Baso # (Auto) 0.0 Immature Gran # (Auto) 0.03 H Absolute Nucleated RBC 0.00 Immature Gran % 0 Nucleated RBC % 0 PT 10.8 INR 1.0 APTT 28.5 Sodium 136 Potassium 5.1 Chloride 99 Carbon Dioxide 27.8 Anion Gap 9 BUN 44 H Creatinine 7.0 H* D Estim Creat Clear Calc 7.3 L eGFR 6 L* BUN/Creatinine Ratio 6 L Glucose [address] Glu mg/dL 134 H Hemoglobin A1c 6.3 H Calculated Osmolality 282 Calcium 9.4 Corrected Calcium 9.5 Phosphorus 5.2 H Magnesium 2.7 H Total Bilirubin 0.4 AST 12 ALT 8 L Alkaline Phosphatase 112 Lactate Dehydrogenase Total Protein 7.3 Albumin 3.9 Globulin 3.4 Albumin/Globulin Ratio 1.1 L Pleural Color Pleural Appearance Pleural WBC Pleural RBC Pleural Polynuclear WBC Pleural Mononuclear WBC Pleural Total Protein Pleural LDH Pleural Glucose Pleural Amylase Influenza A (Rapid) Influenza B (Rapid) Quality Measures Quality Measures VTE prophylaxis Assessment & Plan Assessment Current Active Medications: Generic Name Dose Route Start Last Admin Trade Name Freq PRN Reason Stop Dose Admin Acetaminophen 650 mg 07/09/24 16:47 Acetaminophen 325 Mg Tablet PO 08/08/24 16:46 Q6H PRN Fever >100.4 or pain Protocol Amlodipine Besylate 10 mg 07/10/24 09:00 07/10/24 12:06 Amlodipine Besylate 5 Mg Tablet PO 08/09/24 08:59 10 mg QDAY SILVANA Administration Dextrose 25 ml 07/09/24 16:47 Dextrose 50%-Water Inj 50 Ml Syringe IV 08/08/24 16:46 Q15MIN PRN BG 50-70 responsive npo pt Dextrose 50 ml 07/09/24 16:47 Dextrose 50%-Water Inj 50 Ml Syringe IV 08/08/24 16:46 Q15MIN PRN BG <50 OR BG <70 & pt unresponsive Glucagon 1 mg 07/09/24 16:47 Glucagon Inj 1 Mg Vial IM Q15MIN PRN BG <70, and no IV access Heparin Sodium (Porcine) 5,000 unit 07/09/24 21:00 07/10/24 08:40 Heparin Sod Inj 5000 Unit/Ml Vial SC 07/23/24 20:59 5,000 unit Q12HR SILVANA Administration Hydralazine HCl 25 mg 07/09/24 22:00 07/10/24 06:01 Hydralazine Hcl 25 Mg Tablet PO 08/08/24 21:59 25 mg TID SILVANA Administration Insulin Glargine 10 unit 07/09/24 21:00 07/09/24 20:41 Insulin Glargine (Lantus) 5 Unit/0.05 Ml (Per 5 Units) SC 08/08/24 20:59 10 unit HS SILVANA Administration Insulin Human Lispro 0 unit 07/09/24 17:00 07/10/24 11:31 Insulin Lispro (Admelog) 1 Unit/0.01 Ml Unit SC 08/08/24 16:59 Not Given AC SILVANA Protocol Insulin Human Lispro 6 unit 07/09/24 17:00 07/10/24 11:31 Insulin Lispro (Admelog) 1 Unit/0.01 Ml Unit SC 08/08/24 16:59 Not Given AC SILVANA Magnesium Hydroxide 30 ml 07/09/24 16:47 Milk Of Magnesia Susp 30 Ml Udc PO 08/08/24 16:46 QDAY PRN CONSTIPATION Protocol Ondansetron HCl 4 mg 07/09/24 16:47 Ondansetron Inj 2 Mg/Ml Inj 2 Ml IV 08/08/24 16:46 Q6H PRN NAUSEA OR VOMITING Protocol Sennosides 1 tab 07/09/24 16:47 Senna Tablet PO 08/08/24 16:46 QDAY PRN constipation Protocol Tramadol HCl 50 mg 07/10/24 11:42 07/10/24 12:06 Tramadol Hcl 50 Mg Tablet PO 07/14/24 18:07 50 mg Q12H PRN Administration PAIN RATED 4-6 Protocol Plan 64 y/o F with PMHx significant for ESRD (dialysis M/W/F), insulin-dependent diabetes, HTN presents with chief complaint of shortness of breath since April, admitted for pneumothorax s/p thoracentesis. #Pneumothorax s/p thoracentesis, resolved Patient presented with shortness of breath and progressive pleural effusion since April. In ED, thoracentesis performed with 1 L drained. Follow-up chest x-ray showed apical left pneumothorax of 15%, repeat chest x-ray showed pneumothorax and 25%. Chest tube was then placed without incident. Air bubbles present in chest tube. Patient denies chest pain. Outpatient testing for cocci negative. Pleural fluid sent for fluid studies. Repeat chest x-ray showed resolution of pneumothorax. Chest tube was clamped, chest x-ray 4 hours later did not show recurrence of pneumothorax. Chest tube successfully removed. Pleural fluid studies indicate transudative process. Flu test negative. -Postprocedure chest x-ray pending -O2 as needed to maintain saturation 92% -Echo ordered, follow-up -Follow-up fluid culture -Tramadol 50mg PO q4hr PRN for pain #ESRD Patient receives dialysis M/W/F, with Dr. Roman. Received dialysis Saturday as per usual schedule. -Nephro consulted -Dialysis as per usual schedule -Avoid nephrotoxins -Renally dose meds #DM, insulin-dependent Patient has history as stated. On home Basaglar 10 at bedtime, aspart 6 units 3 times daily with meals. Last A1c 6.4% as of 11/24/2022. -A1c ordered, follow-up -Home regimen: Lantus 10 at bedtime, lispro 6 AC -ISS #Hypertension Patient has history as stated. Patient takes metoprolol, amlodipine, hydralazine outpatient. -Resume home meds: Amlodipine 10 daily, hydralazine 25 TID DVT prophylaxis: Heparin GI prophylaxis: None Diet: Carb consistent, cardiac, renal Lines: Peripheral IV, chest tube Code status: Full code Plan of care discussed with senior resident Dr. Gonzalez PGY?[address] Morales. Jovan Drummond MD PGY-1 Attending Provider Attestation/Addendum I have examined the patient, reviewed labs and imaging findings, discussed the case with the resident(s), and reviewed entered orders. I agree with the plan of care as outlined in this note, with these additional summaries/recommendations: Patient is a 64-year-old female with a medical history of end-stage renal disease on hemodialysis Saturday, diabetes mellitus type 2, and primary hypertension who presented to [facility] emergency department on 07/09/2024 with chief complaint of shortness of breath. Patient was found to have large pleural effusion in the emergency department and underwent thoracentesis. Patient developed pneumothorax and hospitalist team was consulted for continuation of care. Patient seen at bedside. No acute overnight events. Patient reports her breathing his stable this morning and denies shortness of breath. She does endorse discomfort from chest tube. CXR this morning shows resolution of pneumothorax. CT clamped this morning. No distress after clamping. We will repeat CXR this afternoon and remove if able. Continue supplemental oxygen and wean as tolerated. Repeat chest x-ray in AM. Fluid studies indicate transudative effusion and cultures were taken. Consult nephrology for inpatient hemodialysis. Continue basal and bolus insulin for diabetes mellitus type 2. A1c 6.3%. Continue home antihypertensives. Tramadol as needed for pain management. Patient updated on the plan and in agreement. Repeat hematology and chemistry panel in AM. Dr. Morales
--- NOTE | 2024-07-10 15:27 | XR_ITS ---
Examination: AP chest single view Technique one AP portable upright chest single view Exam date and time: July 10, 2024 1539 hours Comparison July 09, 2024 INDICATIONS: Shortness of breath this week. FINDINGS: Prominent pneumonia left base Mild associated heart failure with prominent vascular congestion Moderate osteopenia IMPRESSION: Prominent pneumonia left base Mild associated heart failure
[2024-07-10 17:16] LABS: Hepatitis A Antibody IgM Non Reactive (Non React); Hepatitis B Core Antibody IgM Non Reactive (Non React); Hepatitis B Surface Ab Reactive (Immune) (Immune); Hepatitis B Surface Antigen Non Reactive (Non React); Hepatitis C Antibody Non Reactive (Non React)
[2024-07-10] MEDS: INSULIN GLARGINE (Lantus) 5 UNIT/0.05 ML (PER 5 UNITS) 10 UNIT SC (21:25)
[2024-07-11] VITALS (7 sets, daily range): BP systolic 112–150; BP diastolic 49–72; PULSE 82–91; RESP 16–26; TEMP 36.3–37.2; O2SAT 95–97; BMI 27.6
[2024-07-11] MEDS: hydrALAZINE HCL 25 MG TABLET PO (05:28)
[2024-07-11 05:51] LABS: Basophils % (Auto) 0 % (0-2.5); Eosinophils # (Auto) 0.3 Thou/mm3 (0.0-0.5); Eosinophils % (Auto) 2 % (0-10); Hematocrit 36.5 % (36.0-46.0); Hemoglobin 11.8 g/dL (12.0-16.0); Immature Granulocytes % (Auto) 0 % (0-0); Immature Granulocytes Auto 0.04 Thou/mm3 (0.00-0.00); Lymphocytes % (Auto) 8 % (10-50); Mean Corpuscular HGB Conc 32.3 g/dl (31.0-37.0); Mean Corpuscular Hemoglobin 28.9 pg (25.0-35.0); Mean Corpuscular Volume 89 fL (80-100); Monocytes # (Auto) 1.1 Thou/mm3 (0.0-0.8); Monocytes % (Auto) 9 % (0-12); Neutrophils # (Auto) 9.9 Thou/mm3 (1.8-7.7); Neutrophils % (Auto) 80 % (37-80); Nucleated Red Blood Cell % 0 /100 WBC (0); Platelet Count 240 Thou/mm3 (140-440); RDW Standard Deviation 43.8 fL (36.4-46.3); Red Blood Count 4.09 Miln/mm3 (4.00-5.20); White Blood Count 12.4 Thou/mm3 (3.6-11.0)
[2024-07-11 06:40] LABS: Alanine Aminotransferase 8 U/L (10-49); Albumin/Globulin Ratio 1.2 (1.2-2.2); Alkaline Phosphatase 108 U/L (46-116); Anion Gap 8 (7-16); Aspartate Amino Transferase 11 U/L (0-34); BUN/Creatinine Ratio 5 Ratio (12-20); Bilirubin,Total 0.4 mg/dL (0.3-1.2); Blood Urea Nitrogen 27 mg/dL (9-23); Calcium 9.1 mg/dL (8.3-10.6); Calcium (Corrected) 9.1 mg/dL (8.5-10.1); Carbon Dioxide 31.4 mMol/L (20.0-31.0); Chloride 95 mMol/L (98-107); Creatinine (Component) 5.4 mg/dL (0.6-1.3); Estimated Creatinine Clearance 9.1 mL/min (>60); Globulin 3.4 gm/dL (2.3-3.5); Glucose 183 mg/dL (74-106); Magnesium 2.3 mg/dL (1.6-2.6); Osmolality,Calculated 278 (275-295); Phosphorous 5.4 mg/dL (2.4-5.1); Potassium 4.9 mMol/L (3.4-5.1); Sodium 134 mMol/L (136-145); Total Protein 7.4 gm/dL (5.7-8.2); eGFR 8 See Note
--- NOTE | 2024-07-11 07:00 | XR_ITS ---
Examination: AP chest single view Technique one AP portable semiupright chest single view Presented time: July 11, 2024 0500 hours Comparison July 10, 2024 INDICATIONS: History left pneumothorax postremoval chest tube FINDINGS: Lungs remain well-expanded Heart failure pattern with prominent vascular congestion and perihilar edema Significant pneumonia left base IMPRESSION: Left chest tube has been removed with satisfactory expansion lungs Heart failure pattern remains Significant left base pneumonia
[2024-07-11] MEDS: INSULIN LISPRO (AdmeLOG) 1 UNIT/0.01 ML UNIT SC (07:19)
[2024-07-11] MEDS: INSULIN LISPRO (AdmeLOG) 1 UNIT/0.01 ML UNIT 6 UNIT SC (07:19)
[2024-07-11] MEDS: amLODIPine BESYLATE 5 MG TABLET 10 MG PO (08:07)
[2024-07-11] MEDS: HEPARIN SOD INJ 5000 UNIT/ML VIAL SC (08:07)
[2024-07-11] MEDS: cefTRIAXone/D5w 1gm IV premix 50 ML IV (08:24)
[2024-07-11] MEDS: DOXYCYCLINE 100 MG TABLET PO (08:25)
--- NOTE | 2024-07-11 10:52 | ESDS_ITS ---
Planned Discharge Date 07/11/24 DS: Providers Provider Date of admission: 07/09/24 16:47 Primary care physician: Isaias Pop PA-C Admitting Provider: Willard Morales MD Attending Provider on Admission: Willard Morales MD Consults: 07/09/24 15:59 Consult to Nephrology Stat Comment: ESRD Consulting Provider: Matthew Roman 07/09/24 16:47 Referral Physical Therapy Routine Comment: Physician Instructions: Attending Provider on DC: Rajesh De La Rosa MD Discharging Provider: Rajesh De La Rosa MD DS: Diagnosis Problem List Completed Was Problem List Reviewed/Reconciled?: Yes Hospital Course Hospital Course Hospital course: Discharge diagnoses: #Pneumothorax s/p thoracentesis, resolved #ESRD #Hx of DM, insulin-dependent #Hx of Hypertension History of present illness: 64 y/o F with PMHx significant for ESRD (dialysis M/W/F), insulin-dependent diabetes, HTN presents with chief complaint of shortness of breath since April. Since April patient has noted progressive shortness of breath. She has been seen multiple times in outpatient clinic, has received serial chest x-rays and was told she has an accumulation of fluid. Patient avoided ER unitl her PCP told her she required further treatment in the hospital. Complaining of pleuritic pain. Denies fevers, chills, nausea, vomiting. ED COURSE: Labs significant for: WBCs 10.2, hemoglobin 11.7, outpatient testing for cocci negative. Imaging significant for: Chest x-ray showing significant left-sided pleural effusion. Patient received thoracentesis in ED, drained 1 L of fluid, appropriate studies ordered. Follow-up chest x-ray showed pneumothorax, expanded from 15% to 25%. Chest tube placed in the ED. PMH: ESRD, diabetes, hypertension PSH: Left upper arm fistula placement SH: Denies smoking, alcohol, recreational drug use Allergies:?NKDA Medications: Lovastatin, Basaglar, metoprolol, amlodipine, hydralazine, aspirin, aspart Hospital Course: Patient was admitted for the management and treatment of a left pneumothorax. Chest tube was placed in the ED. On 07/10/2024 chest x-ray showed reexpansion. The chest tube was placed on waterseal then a repeat x-ray later that afternoon showed complete resolution of the pneumothorax. Chest tube was removed without any complications. On examination breath sounds were equal bilaterally. Repeat chest x-ray showed resolution of the pneumothorax however there is a residual left base pneumonia. Patient received IV antibiotics we will transition to p.o. antibiotics upon discharge. Today, labs and vitals were reviewed. Patient is on room air. Patient had scheduled dialysis. Upon review of patient's labs, vitals and imaging. Patient is deemed clinically stable for discharge. All questions and concerns were addressed at bedside. Patient will be discharged home. Discharge plan: Patient will be discharged home. Follow-up with PCP 1 week with repeat CBC renal panel and chest x-ray. Patient will be discharged with Augmentin 500 125 during dialysis. Status at Discharge Functional status at discharge: independent ambulation Overall status at discharge: patient is back to baseline Time Spent with Patient Time attestation: Total time spent providing and/or coordinating discharge services: Time spent: Greater than 30 minutes Exam Vital Signs Temp Pulse Resp BP Pulse Ox O2 Del Method O2 Flow Rate 97.3 F 90 21 H 112/49 L 97 Nasal Cannula 2 07/11/24 08:00 07/11/24 08:07 07/11/24 08:00 07/11/24 08:07 07/11/24 08:00 07/10/24 06:30 07/11/24 06:37 Narrative Exam PE: Gen: Well-developed and well-nourished. HEENT: NCAT, PERRLA, EOMI, MMM, anicteric conjunctivae. CVS: normal S1 and S2. RRR. No M/R/G. Resp: CTA B/L. No rhonchi, rales, crackles or wheezing. Breath sounds equal throughout all lung bur[place]on. Abd: soft, non-tender, non-distended. BS+ in all 4 quadrants. MSK: Good ROM in BUE & BLE. No edema or rash. Left upper arm fistula. Neuro: CN II-XII grossly intact. Strength 5/5 in BUE & BLE. Alert and oriented x3. Psych: appropriate mood and affect. Discharge Plan Plan Patient Disposition: HOME (Self Care) Disposition Comment: Stable Patient condition on transfer: Stable Care Plan Goals: patient to be discharge home patient needs to follow up with PCP in 1 week with repeat CBC, renal panel, and chest x ray Antibiotics: augmentin 500-125mg Prescriptions/Referrals Prescriptions/Med Rec: New amoxicillin-pot clavulanate 500-125 mg tablet 1 tab PO BID Qty: 10 0RF Continued aspirin [Aspir-81] 81 mg Tablet,Delayed Release (Dr/Ec) 81 mg PO QDAY Hold Instructions: Resume on 04/15/22. hydralazine 25 mg Tablet 25 mg PO TID metoprolol succinate 50 mg tablet extended release 24 hr 50 mg PO DAILY Referrals: Isaias Pop PA-C [Primary Care Provider] - Patient/Caregiver Discharge Instructions Discharge Activity: activity as tolerated Education Materials: Pneumothorax (Collapsed Lung) Print Language: Mauritanian Stand Alone Forms: [employer] Award Info., Patient Portal Info Letter Discharge Order Discharge Orders: Discharge (Routine); Ordered 07/11/24 Ordered By: Rajesh De La Rosa Quality Discharge Quality Measures VTE prophylaxis MD Attestestation MD Attestation I have examined the patient, reviewed labs and imaging findings, discussed the case with the resident(s), and reviewed entered orders. I agree with the plan of care as outlined in this note. Dr. Morales
== END 2024-07-11 11:10 | disposition home or self-care (01) | DRG 199 ==
LOC: SERX 16:05 → SERHOLD 16:59 → S2SX 07-11 09:57 → SERHOLD 07-16 07:45
PROVIDERS: Internal Medicine; Nurse Practitioner Primary Care; Admitting Provider Student in an Organized Health Care Education/Training Program; Emergency Provider Emergency Medicine; PCP Family Medicine; Visit Provider Student in an Organized Health Care Education/Training Program
DX: J95.811 Postprocedural pneumothorax (principal); J18.9 Pneumonia, unspecified organism; J96.01 Acute respiratory failure with hypoxia; N18.6 End stage renal disease; I13.2 Hypertensive heart and chronic kidney disease with heart failure and with stage 5 chronic kidney disease, or end stage renal disease; J91.8 Pleural effusion in other conditions classified elsewhere; E11.22 Type 2 diabetes mellitus with diabetic chronic kidney disease; I50.9 Heart failure, unspecified; Z99.2 Dependence on renal dialysis; Z79.4 Long term (current) use of insulin; Z79.899 Other long term (current) drug therapy; Z79.82 Long term (current) use of aspirin; Y84.4 Aspiration of fluid as the cause of abnormal reaction of the patient, or of later complication, without mention of misadventure at the time of the procedure
CPT/HCPCS: 36415; 71045; 71046; 80053; 80074; 82150; 82945; 83036; 83615; 83735; 83880; 84100; 84157; 84484; 85025; 85610; 85730; 86706; 87070; 87075; 87081; 87205; 87502; 87811; 89051; 93005; 96372; 97162; 99285; C1729; J0696; J1643; J1815; J3010; J3490; A9270

== ENCOUNTER 2024-08-26 20:23 | Emergency (ER) | payer OTHER, MEDICAID, SELFPAY ==
[2024-08-26 21:27] VITALS: BP 135/58; PULSE 91; RESP 20; TEMP 37.8; O2SAT 94
[2024-08-26] MEDS: ACETAMINOPHEN 500 MG TABLET 1000 MG PO (22:38)
[2024-08-26] MEDS: SILVER NITRATE 1 APPL EA TOP (22:39)
[2024-08-26] MEDS: SILVER NITRATE 1 APPL EA 2 APPL TOP (23:32)
--- NOTE | 2024-08-27 02:29 | PD.EDEPIST ---
ED Epistaxis RME/HPI General Chief complaint: Epistaxis/Nasal Foreign Body Stated complaint: NOSE BLEEDING Time Seen by Provider: 08/26/24 21:35 Arrival date/time: 08/26/24 20:23 64F with history of HTN and ESRD presents to ED with 2 weeks of intermittent L nare bleeding w/o fall/trauma. Separately, patient starting coughing today. Limitations: no limitations Related Data Home Medications ?Medication ?Instructions ?Recorded ?Confirmed aspirin 81 mg tablet,delayed 81 mg PO QDAY 03/04/19 07/10/24 release (Aspir-) metoprolol succinate 50 mg 50 mg PO DAILY 04/12/22 07/10/24 tablet,extended release 24 hr hydralazine 25 mg tablet 25 mg PO TID 07/10/24 07/10/24 Previous Rx's ?Medication ?Instructions ?Recorded amoxicillin 500 mg-potassium 1 tab PO BID #10 tabs 07/11/24 clavulanate 125 mg tablet Allergies Allergy/AdvReac Type Severity Reaction Status Date / Time No Known Allergies Allergy Verified 08/26/24 20:26 Review of Systems Review of Systems Systems Reviewed: All systems reviewed, normal except as documented Constitutional Constitutional: Reports system reviewed and no additional complaints, except as documented, Denies fever(s) and Denies headache(s) ENT Ears, Nose, Mouth, and Throat: Reports as per HPI, Denies disequilibrium, Reports epistaxis and Denies headache(s) Cardiovascular Cardiovascular: Reports system reviewed and no additional complaints, except as documented, Denies chest pain and Denies dyspnea Respiratory Respiratory: Reports system reviewed and no additional complaints, except as documented, Reports as per HPI, Reports cough and Denies dyspnea Gastrointestinal Gastrointestinal: Reports system reviewed and no additional complaints, except as documented, Denies abdominal pain, Denies nausea and Denies vomiting Neurologic Neurologic: Reports system reviewed and no additional complaints, except as documented, Denies confusion, Denies disequilibrium and Denies headache(s) Psychiatric Psychiatric: Denies confusion Past Medical History Past Medical History NEUROLOGIC: Negative Neurological Disorders or Seizures CARDIAC: Positive Cardiac Disorders, Edema and Hypertension; Negative Congestive Heart Failure RESPIRATORY: Negative Chronic Obstructive Pulmonary Disease (COPD) GASTROINTESTINAL: Negative Gastrointestinal Disorders GENITOURINARY: Positive Renal Disease and Dialysis; Negative Genitourinary Disorders REPRODUCTIVE: Positive Previous Pregnancies MUSCULOSKELETAL: Negative Musculoskeletal Disorders ENDOCRINE: Positive Endocrine Disorders and Diabetes Mellitus Type 2; Negative Diabetes Mellitus Type 1 HEMATOLOGIC: Negative Blood Disorders OTHER HISTORY: Negative Hospitalization, Autoimmune Disease, Blood Transfusions, Anesthesia Reactions or Cancer Social History SMOKING STATUS: Never smoker ED Exam General Limitations: Present no limitations General appearance: Present alert and in no apparent distress Head Head exam: Present atraumatic Eye Eye exam: Present normal appearance, PERRL and EOMI ENT ENT exam: Present normal exam, normal oropharynx and mucous membranes moist Neck Neck exam: Present normal inspection, full ROM and trachea midline Chest Chest inspection: Present normal inspection and symmetric chest wall rise Respiratory Respiratory exam: Present normal lung sounds bilaterally Cardiovascular Cardiovascular exam: Present regular rate, normal rhythm and normal heart sounds Abdominal Exam Abdominal exam: Present soft and normal bowel sounds Extremities Exam Extremities exam: Present normal inspection and full ROM Back Exam Back exam: Present normal inspection and full ROM Neurological Exam Neurological exam: Present alert, oriented X3 and CN II-XII intact Psychiatric Psychiatric exam: Present normal affect and normal mood Skin Skin exam: Present warm, dry, intact and normal color Course Quality Measures none Orders Category Date Time Status Bedside COVID-19 Antigen Test NOW Care 08/26/24 21:40 Completed Bedside Influenza A&B Antigen Test NOW Care 08/26/24 21:40 Completed Acetaminophen Tab [Tylenol ES Tab] Med 08/26/24 21:40 Discontinued 1,000 mg PO X1 ONE Silver Nitrate Applicators Med 08/26/24 21:35 Discontinued 1 appl TOP X1 ONE Silver Nitrate Applicators Med 08/26/24 22:56 Discontinued 2 appl TOP X1 ONE Vital Signs Vital signs: Vital Signs Temperature 100.0 F 08/26/24 21:27 Pulse Rate 91 08/26/24 21:27 Respiratory Rate 20 08/26/24 21:27 Blood Pressure 135/58 H 08/26/24 21:27 Pulse Oximetry (%) 94 L 08/26/24 21:27 Oxygen Delivery Method Room Air 08/26/24 21:27 O2 at 94% on RA Epistaxis MDM Narrative MDM Narrative:: 64F with history of HTN and ESRD presents to ED with 2 weeks of intermittent L nare bleeding w/o fall/trauma. Separately, patient starting coughing today. Physical exam reveals no active bleed. Clear lungs. Patient is afebrile, calm, and alert. Patient was preemptive cauterization, so done. Swabs neg. Likely viral URI. Patient data External records reviewed:: [facility] previous records Clinical information provided by:: patient Social determinants that could affect healthcare access:: none Patient has the following chronic illnesses:: HTN and ESRD How is presenting disease/condition affected by chronic disease/condition?: exacerbated by Evaluation data The following diagnostics were reviewed and interpreted by me:: lab results Lab and/or radiology exams considered but not ordered:: ordered Interpretation Summary: above Medications / Prescriptions Medications or Prescriptions considered but not ordered:: ordered Medication administrations:: Medication Administration History Discontinued Medications Acetaminophen (Acetaminophen 500 Mg Tablet) 1,000 mg PO X1 ONE Stop: 08/26/24 21:41 Last Admin: 08/26/24 22:38 Dose: 1,000 mg Documented By: Silver Nitrate (Silver Nitrate 1 Appl Ea) 1 appl TOP X1 ONE Stop: 08/26/24 21:36 Last Admin: 08/26/24 22:39 Dose: 1 appl Documented By: Silver Nitrate (Silver Nitrate 1 Appl Ea) 2 appl TOP X1 ONE Stop: 08/26/24 22:57 Last Admin: 08/26/24 23:32 Dose: 2 appl Documented By: above Consultations Consultation(s) initiated? (list below): No Diagnosis Epistaxis Differential Diagnosis: nasal bone fracture, anterior epistaxis, posterior epistaxis and other (URI) Most likely diagnosis given after review of the tests above:: URI and epistaxis Admission Indicated Admission indicated?: not indicated Admission Request Was there a request for admission?: No Disposition Plan Disposition Plan: Discharge Discharge Attestation Discharge Attestation: The patient and all family members were given an opportunity to ask questions and understood the discharge instructions. Discharge instructions specifically effects, indications for sooner follow up or return to the emergency department, and the expected course of current diagnosis. Patient condition: Stable Discharge Plan Plan Patient Disposition: HOME (Self Care) Disposition Comment: Stable Prescriptions/Referrals Prescriptions/Med Rec: No Action aspirin [Aspir-81] 81 mg Tablet,Delayed Release (Dr/Ec) 81 mg PO QDAY hydralazine 25 mg Tablet 25 mg PO TID amoxicillin-pot clavulanate 500-125 mg tablet 1 tab PO BID Qty: 10 0RF metoprolol succinate 50 mg tablet extended release 24 hr 50 mg PO DAILY Referrals: Isaias Pop PA-C [Primary Care Provider] - In 1 week Problem List Clinical Impression: Epistaxis, URI (upper respiratory infection) Patient/Caregiver Discharge Instructions Education Materials: ED Epistaxis (Adult), ED URI, Viral, No Abx (Adult) Additional Instructions: Please follow-up with PCP within 24-48 hours and return immediately if symptoms worsen. Print Language: Thai Stand Alone Forms: Patient Portal Info Letter PA/YARD CALLER Supervising Physician PA/YARD CALLER Supervising Physician: Dr. Rogers
== END 2024-08-26 23:52 | disposition home or self-care (01) ==
PROVIDERS: Emergency Provider Emergency Medicine; PCP Family Medicine
DX: J06.9 Acute upper respiratory infection, unspecified (principal); R04.0 Epistaxis
CPT/HCPCS: 87400; 87811; 99283; A9270

== ENCOUNTER 2024-12-10 16:06 | Emergency (ER) | payer OTHER, MEDICAID, SELFPAY ==
[2024-12-10 16:08] VITALS: BMI 25.0
[2024-12-10 17:20] VITALS: BP 149/51; PULSE 81; RESP 18; TEMP 36.9; O2SAT 95
--- NOTE | 2024-12-10 18:25 | PD.EDRME ---
Rapid Medical Screening Exam RME Arrival date/time: 12/10/24 16:06 64F with history of ESRD (MWF) presents to ED because PCP said to come to ED because K was 6.6. Blood was drawn on Saturday, and patient went to dialysis yesterday. Patient has no symptoms. Chief Complaint: General Adult/Misc Complain Vital signs: Vital Signs Temperature 98.4 F 12/10/24 17:20 Pulse Rate 81 12/10/24 17:20 Respiratory Rate 18 12/10/24 17:20 Blood Pressure 149/51 H 12/10/24 17:20 Pulse Oximetry (%) 95 12/10/24 17:20 Oxygen Delivery Method Room Air 12/10/24 17:20
[2024-12-10 18:53] LABS: Basophils % (Auto) 0 % (0-2.5); Eosinophils # (Auto) 0.3 Thou/mm3 (0.0-0.5); Eosinophils % (Auto) 3 % (0-10); Hematocrit 33.7 % (36.0-46.0); Hemoglobin 10.8 g/dL (12.0-16.0); Immature Granulocytes % (Auto) 0 % (0-0); Immature Granulocytes Auto 0.03 Thou/mm3 (0.00-0.00); Lymphocytes # (Auto) 1.6 Thou/mm3 (1.0-4.8); Lymphocytes % (Auto) 19 % (10-50); Mean Corpuscular Hemoglobin 29.3 pg (25.0-35.0); Mean Corpuscular Volume 91 fL (80-100); Monocytes # (Auto) 0.8 Thou/mm3 (0.0-0.8); Monocytes % (Auto) 9 % (0-12); Neutrophils # (Auto) 5.9 Thou/mm3 (1.8-7.7); Neutrophils % (Auto) 68 % (37-80); Nucleated Red Blood Cell % 0 /100 WBC (0); Platelet Count 161 Thou/mm3 (140-440); RDW Standard Deviation 46.9 fL (36.4-46.3); Red Blood Count 3.69 Miln/mm3 (4.00-5.20); White Blood Count 8.6 Thou/mm3 (3.6-11.0)
[2024-12-10 19:29] LABS: Alanine Aminotransferase 11 U/L (10-49); Albumin/Globulin Ratio 1.3 (1.2-2.2); Alkaline Phosphatase 111 U/L (46-116); Anion Gap 8 (7-16); Aspartate Amino Transferase 16 U/L (0-34); BUN/Creatinine Ratio 7 Ratio (12-20); Bilirubin,Total 0.4 mg/dL (0.3-1.2); Blood Urea Nitrogen 50 mg/dL (9-23); Calcium 8.6 mg/dL (8.3-10.6); Calcium (Corrected) 8.6 mg/dL (8.5-10.1); Chloride 102 mMol/L (98-107); Creatinine (Component) 7.3 mg/dL (0.6-1.3); Estimated Creatinine Clearance 6.6 mL/min (>60); Globulin 3.2 gm/dL (2.3-3.5); Glucose 140 mg/dL (74-106); Osmolality,Calculated 292 (275-295); Potassium 5.5 mMol/L (3.4-5.1); Sodium 139 mMol/L (136-145); Total Protein 7.2 gm/dL (5.7-8.2); eGFR 6 See Note
--- NOTE | 2024-12-10 20:11 | EKG_ITS ---
[facility] Test Date: 2024-12-10 Pat Name: ASHLEY PERRY Department: Room: - Gender: Female I O Psychologist: : 1960 Requested By: Kyra Macedo Order Number: [id number] Reading MD: Kyra Macedo Measurements Intervals [place] Rate: 82 P: 52 DC: 138 QRS: -40 QRSD: 92 T: 99 QT: 413 QTc: 484 Interpretive Statements SINUS RHYTHM LEFT AXIS DEVIATION [QRS AXIS < -30] LEFT VENTRICULAR HYPERTROPHY AND ST-T CHANGE [VOLTAGE CRITERIA PLUS ST/T ABNORMALITY] Compared to ECG 07/09/2024 11:27:27 No significant changes /store/S0/[id number]/ecg/[id number].pdf
[2024-12-10 20:18] VITALS: BP 161/79; PULSE 82; RESP 18; TEMP 36.6; O2SAT 98
[2024-12-10] MEDS: SOD POLYSTYRENE SULFON SUSP 15 GM/60 ML BTL 30 GM PO (20:23)
--- NOTE | 2024-12-10 20:23 | PD.EDRECHK ---
ED Recheck Abnl Lab Rx-RME/HPI General Chief Complaint: General Adult/Misc Complain Stated Complaint: HIGH K+ ON SATURDAY'S LAB WORK, ON DIALYSIS Time Seen by Provider: 12/10/24 20:10 Arrival date/time: 12/10/24 16:06 RME / HPI RME / HPI narrative: 12/10/24 16:06 64F with history of ESRD (MWF) presents to ED because PCP said to come to ED because K was 6.6. Blood was drawn on Saturday, and patient went to dialysis yesterday. Patient has no symptoms. -------- Dr. Adams?s Main ED Evaluation: 64yo female with a history of DM, HTN, ESRD on HD (M/W/F) presents to the ED for a chief complaint of abnormal labs. Patient states she had outpatient labs done on Saturday and was told to come to the ED today due to her potassium being high. Patient denies any nausea, vomiting, palpitations, chest pain, shortness of breath or any other associated symptoms. NKA. Related Data Home Medications ?Medication ?Instructions ?Recorded ?Confirmed aspirin 81 mg tablet,delayed 81 mg PO QDAY 03/04/19 07/10/24 release (Aspir-) metoprolol succinate 50 mg 50 mg PO DAILY 04/12/22 07/10/24 tablet,extended release 24 hr hydralazine 25 mg tablet 25 mg PO TID 07/10/24 07/10/24 Previous Rx's ?Medication ?Instructions ?Recorded amoxicillin 500 mg-potassium 1 tab PO BID #10 tabs 07/11/24 clavulanate 125 mg tablet Allergies Allergy/AdvReac Type Severity Reaction Status Date / Time No Known Allergies Allergy Verified 12/10/24 16:11 Review of Systems Review of Systems Systems Reviewed: All systems reviewed, normal except as documented Past Medical History Past Medical History NEUROLOGIC: Negative Neurological Disorders or Seizures CARDIAC: Positive Cardiac Disorders, Edema and Hypertension; Negative Congestive Heart Failure RESPIRATORY: Negative Chronic Obstructive Pulmonary Disease (COPD) GASTROINTESTINAL: Negative Gastrointestinal Disorders GENITOURINARY: Positive Renal Disease and Dialysis; Negative Genitourinary Disorders REPRODUCTIVE: Positive Previous Pregnancies MUSCULOSKELETAL: Negative Musculoskeletal Disorders ENDOCRINE: Positive Endocrine Disorders and Diabetes Mellitus Type 2; Negative Diabetes Mellitus Type 1 HEMATOLOGIC: Negative Blood Disorders OTHER HISTORY: Negative Hospitalization, Autoimmune Disease, Blood Transfusions, Anesthesia Reactions or Cancer Social History SMOKING STATUS: Never smoker ED Exam Narrative Physical exam: GENERAL APPEARANCE: alert and oriented x 4, well-developed, well-nourished, no acute distress VITALS: All vitals were reviewed and the pulse ox is 98% on room air, which is normal according to my interpretation. HEENT: Normocephalic, atraumatic; pupils equal, round, reactive to light; EOMI; mucous membranes pink, moist; oropharynx clear NECK: Supple LUNGS: CTABL; no wheezes, no rales, no rhonchi HEART: Regular rate, regular rhythm; normal S1, S2; no murmurs ABDOMEN: non distended; normal BS; soft, no tenderness, no guarding, no rebound; no masses, no organomegaly, no hernia BACK: no CVA tenderness EXTREMITIES: atraumatic; no edema NEUROLOGIC: awake; alert and oriented x4; cranial nerves II-XII grossly intact; no focal sensory or motor deficits PSYCHIATRIC: appropriate mood and affect SKIN: warm, dry, normal color; no rashes Course Quality Measures none Orders Category Date Time Status EKG (ED ONLY) *Do not use* NOW Care 12/10/24 20:11 Completed EKG (ED Only) Stat Exams 12/10/24 20:11 Draft CBC Stat Lab 12/10/24 18:36 Completed CMP [Comprehensive Metabolic Panel] Stat Lab 12/10/24 18:36 Completed Sod Polystyrene Sulfon Susp [Kayexalate Susp] Med 12/10/24 20:11 Discontinued 30 gm PO X1 ONE Vital Signs Vital signs: Vital Signs Temperature 98.4 F 12/10/24 17:20 Pulse Rate 81 12/10/24 17:20 Respiratory Rate 18 12/10/24 17:20 Blood Pressure 149/51 H 12/10/24 17:20 Pulse Oximetry (%) 95 12/10/24 17:20 Oxygen Delivery Method Room Air 12/10/24 17:20 Recheck / Abnormal Lab / Rx MDM Narrative MDM Narrative:: Scribe Attestation: 12/10/24 - [place] am scribing for and in the presence of Dr. Adams. Patient data External records reviewed:: [facility] previous records (Per chart review, patient was admitted here on 07/09/24 for ESRD.) Clinical information provided by:: patient Social determinants that could affect healthcare access:: none Patient has the following chronic illnesses:: DM, HTN, ESRD on HD How is presenting disease/condition affected by chronic disease/condition?: caused by Evaluation data The following diagnostics were reviewed and interpreted by me:: lab results and EKG tracing(s) Lab and/or radiology exams considered but not ordered:: none Interpretation Summary: CBC normal, Potassium elevated at 5.5, Creatinine 7.3, BUN 50. EKG done at 2016, NSR, rate of 82, left axis deviation, T wave inversion in V1, no acute ischemia, according to my interpretation. Medications / Prescriptions Medications or Prescriptions considered but not ordered:: none Medication administrations:: Medication Administration History Discontinued Medications Sodium Polystyrene Sulfonate (Sod Polystyrene Sulfon Susp 15 Gm/60 Ml Btl) 30 gm PO X1 ONE Stop: 12/10/24 20:12 Last Admin: 12/10/24 20:23 Dose: 30 gm Documented By: see above Consultations Consultation(s) initiated? (list below): No Diagnosis Recheck Differential Diagnosis: other (hyperkalemia, uremia, other electrolyte abnormality) Most likely diagnosis given after review of the tests above:: see clinical impression below Admission Indicated Admission indicated?: not indicated Admission Request Was there a request for admission?: No Disposition Plan Disposition Plan: Discharge Discharge Attestation Discharge Attestation: The patient and all family members were given an opportunity to ask questions and understood the discharge instructions. Discharge instructions specifically effects, indications for sooner follow up or return to the emergency department, and the expected course of current diagnosis. Patient condition: Stable Discharge Plan Plan Patient Disposition: HOME (Self Care) Prescriptions/Referrals Prescriptions/Med Rec: No Action aspirin [Aspir-81] 81 mg Tablet,Delayed Release (Dr/Ec) 81 mg PO QDAY hydralazine 25 mg Tablet 25 mg PO TID amoxicillin-pot clavulanate 500-125 mg tablet 1 tab PO BID Qty: 10 0RF metoprolol succinate 50 mg tablet extended release 24 hr 50 mg PO DAILY Referrals: Raleigh Croft MD [Primary Care Provider] - In 1 week Problem List Clinical Impression: Hyperkalemia Patient/Caregiver Discharge Instructions Education Materials: ED Hyperkalemia Additional Instructions: Follow up for dialysis tomorrow as scheduled Print Language: Lao Stand Alone Forms: [employer] Award Info., Patient Portal Info Letter
[2024-12-10 20:45] VITALS: RESP 18
== END 2024-12-10 20:46 | disposition home or self-care (01) ==
PROVIDERS: Physician Assistant; Emergency Provider Emergency Medicine; PCP Family Medicine
DX: E87.5 Hyperkalemia (principal); E11.22 Type 2 diabetes mellitus with diabetic chronic kidney disease; I12.0 Hypertensive chronic kidney disease with stage 5 chronic kidney disease or end stage renal disease; N18.6 End stage renal disease; Z99.2 Dependence on renal dialysis; I51.7 Cardiomegaly; R94.31 Abnormal electrocardiogram [ECG] [EKG]
CPT/HCPCS: 36415; 80053; 85025; 93005; 99283; A9270

== ENCOUNTER 2025-01-29 11:54 | Inpatient (IN) | payer OTHER, MEDICAID, MEDICARE, SELFPAY ==
[2025-01-29 11:55] VITALS: BMI 29.1
[2025-01-29 12:04] VITALS: BP 119/60; PULSE 78; RESP 18; TEMP 37.1; O2SAT 95
--- NOTE | 2025-01-29 12:19 | EKG_ITS ---
[facility] Test Date: 2025-01-29 Pat Name: ASHLEY PERRY Department: Room: - Gender: Female Stock Checker: : 1960 Requested By: Eli Odom Order Number: [id number] Reading MD: Eli Odom Measurements Intervals [place] Rate: 75 P: 63 MI: 142 QRS: -26 QRSD: 90 T: 84 QT: 432 QTc: 483 Interpretive Statements SINUS RHYTHM BORDERLINE LEFT AXIS DEVIATION [QRS AXIS < -20] MODERATE VOLTAGE CRITERIA FOR LVH, CONSIDER NORMAL VARIANT [MEETS CRITERIA IN ONE OF: R(aVL), S(V1), R(V5), R(V5/V6)+S(V1)] NONSPECIFIC ST & T-WAVE ABNORMALITY Compared to ECG 12/10/2024 20:16:10 T-wave abnormality now present ST (T wave) deviation no longer present /store/S0/[id number]/ecg/[id number].pdf
--- NOTE | 2025-01-29 12:20 | PD.EDGIBLD ---
ED GI Bleed RME/HPI General Chief complaint: GI Bleed Stated complaint: RECTAL BLEEDING, DIZZINESS Time Seen by Provider: 01/29/25 12:01 Arrival date/time: 01/29/25 11:54 RME / HPI RME / HPI Narrative: 65-year-old female patient with significant history of end-stage renal disease, had dialysis this morning, diabetes hypertension came in for evaluation regarding fresh red blood per rectum. Patient went to the restroom, noticed bright red blood in the toilet bowl, after f 15 minutes, patient had to go to the restroom again, and this time reported in the bottled container, still with myself, around 200 cc of dark-colored blood. Patient is denying any abdominal pain however complaining of dizziness. Patient is taking aspirin every day. Last colonoscopy done about 2 years ago. Denies any chest pain denies any headache. Related Data Home Medications ?Medication ?Instructions ?Recorded ?Confirmed aspirin 81 mg tablet,delayed 81 mg PO QDAY 03/04/19 07/10/24 release (Aspir-) metoprolol succinate 50 mg 50 mg PO DAILY 04/12/22 07/10/24 tablet,extended release 24 hr hydralazine 25 mg tablet 25 mg PO TID 07/10/24 07/10/24 Previous Rx's ?Medication ?Instructions ?Recorded amoxicillin 500 mg-potassium 1 tab PO BID #10 tabs 07/11/24 clavulanate 125 mg tablet Allergies Allergy/AdvReac Type Severity Reaction Status Date / Time No Known Allergies Allergy Verified 01/29/25 11:55 Review of Systems Review of Systems Narrative Review of Systems: Review of system reviewed and within normal limits except mentioned in HPI ED Exam Narrative Physical exam: VITAL SIGNS: Reviewed. GENERAL APPEARANCE: Alert and interactive, follows commands, no acute distress, HEAD AND FACE: Non-traumatic. ENT: PERRL, pink conjunctivitis, eyelid no trauma, Mucous membrane moist. NECK: Supple, nontender, no nuchal rigidity. CHEST: No tenderness, no crepitus, no paradoxical movement, no retractions. LUNGS: Clear, well ventilated, symmetric, no rales, no wheezing, no ronchi, no stridor, good breath sounds bilaterally. HEART: Regular rate, regular rhythm, no murmur, no gallops. ABDOMEN: Soft, positive bowel sounds, nondistended, no guarding, nontender, no rebound, no masses, RECTAL: Deferred. GENITAL: Deferred. NEUROLOGICAL: Gross motor function intact sensory function intact, Appropriate for age. MUSCULOSKELETAL: low back nontender, full range of motion. EXTREMITIES: Nontender, full range of motion. SKIN: Color pink, dry, no rash, no lacerations, no abrasions, no contusions. LYMPHATICS: Deferred. Course Quality Measures none Orders Category Date Time Status COVID-19 Screening Questionnaire NOW Care 01/29/25 15:49 Active Decision to Admit X1 Care 01/29/25 15:48 Active EKG (ED ONLY) *Do not use* NOW Care 01/29/25 12:19 Completed IV [Insert IV] NOW Care 01/29/25 12:46 Active NPO after Midnight ONCE Care 01/29/25 15:48 Active Occult Blood,Stool (Nursing) NOW Care 01/29/25 12:19 Active Consult to Gastroenterology Stat Cons 01/29/25 15:41 Ordered Diet NPO after Midnight Diet 01/30/25 00:01 Active EKG (ED Only) Stat Exams 01/29/25 12:19 Draft CBC Stat Lab 01/29/25 13:15 Completed Comprehensive Metabolic Panel Stat Lab 01/29/25 13:15 Completed Partial Thromboplastin Time Stat Lab 01/29/25 13:15 Completed Prothrombin Time with INR Stat Lab 01/29/25 13:15 Completed Type and Screen Stat Lab 01/29/25 13:15 Completed Urinalysis Stat Lab 01/29/25 12:19 Ordered NA MARTINEZ/NAHCO3/HEATH/PEG (Golytely) [Golytely] Med 01/29/25 15:47 Discontinued 4,000 ml PO X1 ONE Pantoprazole Inj [Protonix Inj] Med 01/29/25 15:22 Discontinued 80 mg IVP X1 ONE cefTRIAXone/D5w 1gm IV premix [Rocephin/D5w 1gm IV Med 01/29/25 15:49 Active premix] 1 gm in 50 ml IV X1 Vital Signs Vital signs: Vital Signs Temperature 98.7 F 01/29/25 12:04 Pulse Rate 78 01/29/25 12:04 Respiratory Rate 18 01/29/25 12:04 Blood Pressure 119/60 01/29/25 12:04 Pulse Oximetry (%) 95 01/29/25 12:04 Oxygen Delivery Method Room Air 01/29/25 12:04 GI Bleed [facility] Narrative [facility] Narrative:: 65-year-old female patient with significant history of end-stage renal disease, had dialysis this morning, diabetes hypertension came in for evaluation regarding fresh red blood per rectum. Patient went to the restroom, noticed bright red blood in the toilet bowl, after f 15 minutes, patient had to go to the restroom again, and this time reported in the bottled container, still with myself, around 200 cc of dark-colored blood. Patient is denying any abdominal pain however complaining of dizziness. Patient is taking aspirin every day. Last colonoscopy done about 2 years ago. Denies any chest pain denies any headache. Patient continues to have bright red blood per rectum in the ED. At least 3 times already went to the restroom. Patient still ambulatory vital signs stable, hemoglobin is 11.9 platelets normal creatinine was noted to be 5.3 potassium is normal. Patient EKG showed normal sinus rhythm, ventricular rate of 75 bpm, no ST segment elevation or depression noted. Patient was started on IV Protonix, IV ceftriaxone. I also ordered for GoLytely and n.p.o. postmidnight per recommendation of Dr. Velasco who will scope the patient tomorrow. Patient data External records reviewed:: None Clinical information provided by:: patient and family Social determinants that could affect healthcare access:: none Patient has the following chronic illnesses:: ESRD, hypertension How is presenting disease/condition affected by chronic disease/condition?: exacerbated by Evaluation data The following diagnostics were reviewed and interpreted by me:: lab results, radiology exam(s) and other (specify) Lab and/or radiology exams considered but not ordered:: None Interpretation Summary: See results in MDM Medications / Prescriptions Medications or Prescriptions considered but not ordered:: None Medication administrations:: Medication Administration History Ceftriaxone Sodium/Dextrose (Rocephin/D5w 1gm Iv Premix) 1 gm in 50 mls @ 100 mls/hr IV X1 ONE Stop: 01/29/25 16:18 Discontinued Medications Pantoprazole Sodium (Pantoprazole Inj 40 Mg Vial) 80 mg IVP X1 ONE Stop: 01/29/25 15:23 Polyethylene Glycol/Electrolytes (Na Martinez/Nahco3/Heath/Peg (Golytely) 4,000 Ml Btl) 4,000 ml PO X1 ONE Stop: 01/29/25 15:48 GoLytely, pantoprazole, depression IV Consultations Consultation(s) initiated? (list below): Yes Consultation #1 (Physician, Specialty, Details): Spoke with Dr. Velasco, GI specialist on-call, thank you Dr. Velasco Diagnosis GI bleed differential diagnosis: hemorrhoids, infectious diarrhea and Lower gastrointestinal hemorrhage Most likely diagnosis given after review of the tests above:: Lower GI bleed, ESRD on hemodialysis Admission Indicated Admission indicated?: indicated Explain why admission is indicated or not indicated:: For further management Admission Request Was there a request for admission?: Yes Admission Attestation Admission request attestation: Discussed case with [Dr. Tonny Croft from Hospitalist service regarding admission. Discussed patients ED course, exam findings, labs, and radiology results. The Hospitalist [agrees,] to accept the patient for admission. Disposition Plan Disposition Plan: Admit Discharge Plan Plan Patient Disposition: Admit Acute Care w/in Hospital Prescriptions/Referrals Prescriptions/Med Rec: No Action aspirin [Aspir-81] 81 mg Tablet,Delayed Release (Dr/Ec) 81 mg PO QDAY hydralazine 25 mg Tablet 25 mg PO TID amoxicillin-pot clavulanate 500-125 mg tablet 1 tab PO BID Qty: 10 0RF metoprolol succinate 50 mg tablet extended release 24 hr 50 mg PO DAILY Referrals: Raleigh Croft MD [Primary Care Provider] - In 1 week Problem List Clinical Impression: Lower gastrointestinal hemorrhage, ESRD (end stage renal disease) on dialysis Patient/Caregiver Discharge Instructions Print Language: Welsh Stand Alone Forms: [employer] Award Info., Patient Portal Info Letter
--- NOTE | 2025-01-29 12:32 | PC.NURSE ---
Patient from lobby and taken to room 17 with c/o rectal bleeding since 0100am, worse the last 15-20 minutes, patient denies pain, skin is warm, dry and slighly pale, daughter at bedside, chart up to be seen by er provider, call light within reach.
[2025-01-29 13:01] LABS: Basophils # (Auto) 0.0 Thou/mm3 (0.0-0.2); Basophils % (Auto) 0 % (0-2.5); Eosinophils # (Auto) 0.3 Thou/mm3 (0.0-0.5); Eosinophils % (Auto) 4 % (0-10); Hematocrit 36.4 % (36.0-46.0); Hemoglobin 11.9 g/dL (12.0-16.0); Immature Granulocytes Auto 0.02 Thou/mm3 (0.00-0.00); Lymphocytes # (Auto) 1.1 Thou/mm3 (1.0-4.8); Lymphocytes % (Auto) 15 % (10-50); Mean Corpuscular HGB Conc 32.7 g/dl (31.0-37.0); Mean Corpuscular Hemoglobin 30.8 pg (25.0-35.0); Mean Corpuscular Volume 94 fL (80-100); Monocytes # (Auto) 0.7 Thou/mm3 (0.0-0.8); Monocytes % (Auto) 9 % (0-12); Neutrophils # (Auto) 5.2 Thou/mm3 (1.8-7.7); Neutrophils % (Auto) 72 % (37-80); Nucleated Red Blood Cell # 0.00 Thou/mm3 (0.00-0.00); Nucleated Red Blood Cell % 0 /100 WBC (0); Platelet Count 196 Thou/mm3 (140-440); RDW Standard Deviation 51.6 fL (36.4-46.3); Red Blood Count 3.86 Miln/mm3 (4.00-5.20); White Blood Count 7.2 Thou/mm3 (3.6-11.0)
[2025-01-29 13:43] LABS: INR 1.0 (0.9-1.3); Partial Thromboplastin Time 25.3 Seconds (22.0-36.0); Prothrombin Time 10.9 Seconds (9.0-12.2)
[2025-01-29 13:47] LABS: Alanine Aminotransferase < 7 U/L (10-49); Albumin, Serum 3.6 gm/dL (3.4-4.8); Albumin/Globulin Ratio 1.4 (1.2-2.2); Alkaline Phosphatase 94 U/L (46-116); Anion Gap 9 (7-16); Aspartate Amino Transferase 20 U/L (0-34); BUN/Creatinine Ratio 5 Ratio (12-20); Bilirubin,Total 0.5 mg/dL (0.3-1.2); Blood Urea Nitrogen 29 mg/dL (9-23); Calcium 8.9 mg/dL (8.3-10.6); Calcium (Corrected) 9.2 mg/dL (8.5-10.1); Carbon Dioxide 29.6 mMol/L (20.0-31.0); Chloride 100 mMol/L (98-107); Creatinine (Component) 5.3 mg/dL (0.6-1.3); Estimated Creatinine Clearance 9.7 mL/min (>60); Globulin 2.6 gm/dL (2.3-3.5); Glucose 130 mg/dL (74-106); Osmolality,Calculated 285 (275-295); Potassium 5.1 mMol/L (3.4-5.1); Sodium 139 mMol/L (136-145); Total Protein 6.2 gm/dL (5.7-8.2); eGFR 9 See Note
[2025-01-29 16:05] VITALS: BP 132/62; PULSE 71; RESP 17; TEMP 36.7; O2SAT 95
[2025-01-29] MEDS: cefTRIAXone/D5w 1gm IV premix 1 GM/50 ML BAG IV (16:09)
--- NOTE | 2025-01-29 16:14 | PC.NURSE ---
Patient on dialysis and states she does not produce any urine, hospitalits at bedside to evaluate patient,
--- NOTE | 2025-01-29 16:38 | ESHP_ITS ---
<Statement entered by Douglas Croft MD - 01/29/25 22:06> Patient was examined and case was reviewed with team including attending physician. Note reviewed, I agree with most of its contents and agree with the patient's care as documented by Dr. Santo 65-year-old female with past medical history of end-stage renal disease on dialysis Saturday today, Saturday, Saturday, hypertension, diabetes mellitus, hyperlipidemia who presented to the ED due to bright red blood per rectum. Patient states she woke up around 1 in the morning and started having profuse bloody diarrhea at least 8-9 episodes. She also endorsed the last few ones were black and coffee like in nature. She denies any fever, chills, abdominal pain. She did endorse some shortness of breath and dizziness but endorsed it to her hemodialysis session today. She states she usually has the symptoms whenever she has dialysis. Patient did have a colonoscopy around 2 years ago which was benign. Patient is hemoglobin will be monitored and transfuse if needed. Gastroenterology was consulted for possible colonoscopy intervention. Diabetes was managed with insulin sliding scale, dialysis schedule will be resumed and well reactivator operator was consulted. Patient currently on GoLytely prep we will continue to monitor. Case discussed with my attending Dr. Dick Croft MD PGY-2 Disclaimer: Despite multiple revisions, due to the dictation software being used, the document bellow may not be free of grammatical errors including phonetic/typographic errors. However, this does not deter from our commitment to providing health care in the patient's best interest in mind. Documentation for date of: 01/29/25 HPI History of Present Illness Chief complaint: Bright red blood per rectum History of present illness: This is a 65 y.o female with past medical history of ESRD on dialysis MWF with Dr. Roman, DM, HTN, HLD, hyperkalemia who presents to the emergency department for evaluation of rectal bleeding. Patient states that she had a bright red diarrhea at 0100 this morning. Since then she has had 8-9 episodes of bloody diarrhea/rectal bleeding. Last episodes consisted of dark red bleeding/diarrhea. Patient denies any recent travel or previous episode of similar symptoms. Patient denies any abdominal pain, nausea, vomiting, chest pain or headache; however, she endorses dizziness. Patient has completed her dialysis session this morning. Patient's last colonoscopy was 2 years ago which was normal, per patient. In regards to her diabetes management, patient states that she has not used insulin in about 2 months and her home blood glucose run anywhere between 180 to 200. Allergies: NKDA Medication: aspirin, aspart, hydralazine, amloidipine, metoprolol, basaglar, lovastatin PMH: ESRD on dialysis MWF with Dr. Roman, DM, HTN, HLD, hyperkalemia PSH: fistula creation on left upper arm SH: denies smoking or alcohol use. Exam Vital Signs Temp Pulse Resp BP Pulse Ox O2 Del Method 98.0 F 71 17 132/62 H 95 Room Air 01/29/25 16:05 01/29/25 16:05 01/29/25 16:05 01/29/25 16:05 01/29/25 16:01/29/25 16:05 Narrative Exam Gen: Well-developed and well-nourished. obese female sitting comfortably on bed. HEENT: NCAT, EOMI, MMM, anicteric conjunctivae. CVS: normal S1 and S2. RRR. No M/R/G. Resp: CTA B/L. No rhonchi, rales, crackles or wheezing. Ext:warm and well perfused, no pretibial edema noted. fistula noted on anterior left biceps with good thrill. Neuro: Cranial nerve II to XII grossly intact. Bilateral upper extremity 5/5. Bilateral lower extremity 5/5. normal sensation to both upper and lower limbs bilaterally. GCS 15 Abdomen: Abdomen is nondistended with no tenderness to palpation. No guarding, rigidity or peritinic sign. Psych: appropriate mood and affect. Results: Labs 01/30/25 05:11 01/30/25 13:55 Labs: Short CBC 01/29/25 Range/Units 13:15 WBC 7.2 (3.6-11.0) Thou/mm3 Hgb 11.9 L (12.0-16.0) g/dL Hct 36.4 (36.0-46.0) % Plt Count 196 (140-440) Thou/mm3 BMP 01/29/25 13:15 Sodium 139 Potassium 5.1 Chloride 100 Carbon Dioxide 29.6 BUN 29 H Creatinine 5.3 H* Glucose 130 H Calcium 8.9 Liver Function 01/29/25 Range/Units 13:15 Total Bilirubin 0.5 (0.3-1.2) mg/dL AST 20 (0-34) U/L ALT < 7 L (10-49) U/L Alkaline Phosphatase 94 (46-116) U/L Albumin 3.6 (3.4-4.8) gm/dL Quality Measures Quality Measures none Medications Home Medications and Allergies Home Medications ?Medication ?Instructions ?Recorded ?Confirmed ?Type metoprolol succinate 50 mg 50 mg PO DAILY 04/12/22 History tablet,extended release 24 hr hydralazine 25 mg tablet 25 mg PO TID 07/10/24 History amlodipine 10 mg tablet 10 mg PO DAILY 01/29/2501/15 History aspirin 81 mg chewable tablet 1 tab PO DAILY 01/29/25 01/29/25 History empagliflozin 10 mg tablet 10 mg PO QAM 01/29/2501/29 History (Jardiance) ferrous sulfate 325 mg (65 mg 325 mg PO DAILY 01/29/25 01/29/25 History iron) tablet furosemide 40 mg tablet (Lasix) 40 mg PO BID 01/29/25 01/29/25 History sacubitril 97 mg-valsartan 103 mg 1 tab PO BID 5 01/29/25 History tablet (Entresto) Allergies Allergy/AdvReac Type Severity Reaction Status Date / Time No Known Allergies Allergy Verified 01/29/25 11:55 Visit Medications Acetaminophen (Acetaminophen 325 Mg Tablet) 650 mg PO Q6H PRN PRN Reason: Fever >101.5 Stop: 02/28/25 16:26 Acetaminophen (Acetaminophen Supp 650 Mg Supp) 650 mg PA Q6H PRN PRN Reason: PAIN SCALE 1-3 (mild Stop: 02/28/25 16:26 Ondansetron HCl (Ondansetron Inj 2 Mg/Ml Inj 2 Ml) 4 mg IVP Q6H PRN; Protocol PRN Reason: NAUSEA OR VOMITING Stop: 02/28/25 16:26 Pantoprazole Sodium (Pantoprazole Inj 40 Mg Vial) 40 mg IVP BID SILVANA Stop: 03/01/25 08:59 Discontinued Medications Ceftriaxone Sodium/Dextrose (Rocephin/D5w 1gm Iv Premix) 1 gm in 50 mls @ 100 mls/hr IV X1 ONE Stop: 01/29/25 16:18 Last Admin: 01/29/25 16:09 Dose: 100 mls/hr Pantoprazole Sodium (Pantoprazole Inj 40 Mg Vial) 80 mg IVP X1 ONE Stop: 01/29/25 15:23 Last Admin: 01/29/25 16:09 Dose: 80 mg Pantoprazole Sodium (Pantoprazole Inj 40 Mg Vial) 40 mg IVP QDAY SILVANA Stop: 03/01/25 08:59 Polyethylene Glycol/Electrolytes (Na Martinez/Nahco3/Yanick/Peg (Golytely) 4,000 Ml Btl) 4,000 ml PO X1 ONE Stop: 01/29/25 15:48 Assessment & Plan Plan 65F with PMH of ESRD on dialysis MWF with Dr. Roman, DM, HTN, HLD, hyperkalemia who presents to the ED for evaluation of rectal bleeding. Bright red rectal bleeding/diarrhea started at 0100 this morning with 8-9 additional episodes throughout the day which turned into dark colored in the last episodes. Patient denies any abdominal pain, nausea, vomiting; however, endorses dizziness. Patient has completed her dialysis session this morning. Patient's last colonoscopy was 2 years ago which was normal, per patient. #GI bleeding Bleeding started this morning at 0100 which bright red blood per rectum. 8-9x additional episodes which turned dark colored. No previous episodes. On aspirin 81. On exam, patient is hemodynamically stable with no abdominal tenderness. Vital signs stables. Hemoglobin on admission 11.9. Differentials include but not limited to lower GI bleed such as angiodysplasia, colorectal cancer, internal hemorrhoids, diverticulosis, colonic polyps vs upper GI bleed. Plan: - Trend H&H - NPO at midnight - GI Dr. Velasco was consulted who will perform colonoscopy tomorrow - Ordered type and screen - Loading dose of panteprazole 80 given - Patient does not appear hypovolemic on exam, will consider IVF if need, considering ESRD. - Held home aspirin #ESRD on dialysis Dialysis sessions on MWF with Dr. Roman. COmpleted her session today. Plan: - COnsulted nephrology, Dr Roman, appreciate recs - Renally dosed medications - Avoid nephrotoxin - Renal diet with low carb #DM Home blood glucose measurement ranging from 180-200. Has not used insulin in 2 months. Plan: - SSI #HLD Chronic. Plan: -Continue home Statin #HTN Chronic. Last measurement 132/62 Plan: - Resume home metoprolol, hydralazine, and amloidipine Dispo: Admit to med tele DVT prophylaxis: SCDs GI prophylaxis: Panteprazole 40 BID Bowel reg: none Diet: low cons carb renal diet (NPO at midnight) Pain mgmt: prn Tylenol Lines: peripheral Code status: Full code Plan discussed with Dr. Lancaster and Dr. Dick Santo DO PGY1 Attending Provider Attestation/Addendum Mariam Canada DO, attest that I was physically present for the joseph portions of the service and evaluated the patient with the resident and I reviewed and discussed the case with the resident and agree with the resident's findings and plans of care as documented above Patient is a 65-year-old female with past medical history of end-stage renal disease on hemodialysis, diabetes, hypertension, hyperlipidemia who presented to the ED due to complaint of bright red blood per rectum. Patient states that she has had multiple episodes of bloody diarrhea since 1 in the morning. She states that she has about 12 episodes of diarrhea since. She admits to taking aspirin at home. She has never had blood in her stool in the past. She had a colonoscopy about 2 years ago that was unremarkable reportedly. Patient denies any pain in her abdomen. Daughter at bedside states the last bowel movement she had in the ED was black. She denies taking any Pepto-Bismol or iron supplements otherwise. Will admit patient to med/telemetry for further workup and medical management of acute GI bleed. Patient did undergo dialysis yesterday morning prior to presentation. She denies any dizziness or shortness of breath at this time. Hemoglobin appears to be at baseline at 11. Will start patient on Protonix 40 mg IV twice daily and place patient n.p.o. in anticipation of colonoscopy. GI was called from ED and recommended starting GoLytely.
[2025-01-29 16:42] VITALS: PULSE 73; RESP 18; RESP 99
[2025-01-29 17:20] LABS: Hematocrit 35.9 % (36.0-46.0); Hemoglobin 11.4 g/dL (12.0-16.0)
[2025-01-29 17:54] VITALS: BMI 26.8; BMI 29.1
--- NOTE | 2025-01-29 18:27 | PD.IMCONS ---
HPI Data of Consult Requesting Physician: Mariam Jennings DO Primary Care Provider: Raleigh Croft MD Consult Narrative Reason for consult: Hematochezia History of present illness: 65 years old female with history of essential hypertension came to the emergency room with multiple episodes of hematochezia There is a patient at the request of the ER medical team with our PA ZBIGNIEW Rodriguez cc:: cc: Mariam Jennings DO Review of Systems Review of Systems Systems Reviewed: All systems reviewed, normal except as documented Past Medical History Surgical History OTHER SURGICAL HX: Essential hypertension Meds Home Medications and Allergies Home Medications ?Medication ?Instructions ?Recorded ?Confirmed ?Type metoprolol succinate 50 mg 50 mg PO DAILY 04/12/22 01/29/25 History tablet,extended release 24 hr hydralazine 25 mg tablet 25 mg PO TID 07/10/24 01/29/25 History amlodipine 10 mg tablet 10 mg PO DAILY 01/29/25 01/29/25 History aspirin 81 mg chewable tablet 1 tab PO DAILY 01/29/25 01/29/25 History empagliflozin 10 mg tablet 10 mg PO QAM 01/29/25 01/29/25 History (Jardiance) ferrous sulfate 325 mg (65 mg 325 mg PO DAILY 01/29/25 01/29/25 History iron) tablet furosemide 40 mg tablet (Lasix) 40 mg PO BID 01/29/25 01/29/25 History sacubitril 97 mg-valsartan 103 mg 1 tab PO BID 01/29/25 01/29/25 History tablet (Entresto) Allergies Allergy/AdvReac Type Severity Reaction Status Date / Time No Known Allergies Allergy Verified 01/29/25 11:55 Exam Vital Signs Temp Pulse Resp BP Pulse Ox O2 Del Method 98.0 F 73 18 132/62 H 95 Room Air 01/29/25 16:05 01/29/25 16:42 01/29/25 16:42 01/29/25 16:05 01/29/25 16:05 01/29/25 16:05 Constitutional Comments: Chronically ill-appearing Routine Respiratory Exam Comments: Normal to auscultation Routine Abdominal Exam Comments: Soft nontender Results Labs 01/30/25 15:36 01/30/25 13:55 Labs: Short CBC 01/29/25 01/29/25 Range/Units 13:15 17:14 WBC 7.2 (3.6-11.0) Thou/mm3 Hgb 11.9 L 11.4 L (12.0-16.0) g/dL Hct 36.4 35.9 L (36.0-46.0) % Plt Count 196 (140-440) Thou/mm3 BMP 01/29/25 13:15 Sodium 139 Potassium 5.1 Chloride 100 Carbon Dioxide 29.6 BUN 29 H Creatinine 5.3 H* Glucose 130 H Calcium 8.9 Liver Function 01/29/25 Range/Units 13:15 Total Bilirubin 0.5 (0.3-1.2) mg/dL AST 20 (0-34) U/L ALT < 7 L (10-49) U/L Alkaline Phosphatase 94 (46-116) U/L Albumin 3.6 (3.4-4.8) gm/dL Assessment and Plan Additional Assessment & Plan Additional Plan: # hematochezia recommendations clear liquid diet GoLytely prep Consent obtained for fiberoptic colonoscopy with possible biopsy possible therapeutic intervention under intravenous moderate sedation tentatively scheduled for tomorrow # End-stage renal disease on hemodialysis Thank you very much for the opportunity to participate in the care of this patient
[2025-01-29 18:29] LABS: OBS Card Lot # 0124; OBS Developer Lot # 424; OBS Performed By vasqk2; OBS QC OK? Yes; Occult Blood, Stool Positive (Negative)
[2025-01-29] MEDS: NA SU/NAHCO3/KC/PEG (Golytely) 4,000 ML BTL 4000 ML PO (18:49)
[2025-01-29 20:00] VITALS: BP 139/57; PULSE 74; PULSE 77; RESP 17; TEMP 36.1; O2SAT 96
--- NOTE | 2025-01-29 20:42 | PC.NURSE ---
dr quesada notified of pt having history of type 2 diabetes, and no blood sugar checks ordered, pts random bedside blood glucose 220. NO new orders at this time.
[2025-01-30] VITALS (27 sets, daily range): BP systolic 120–156; BP diastolic 52–70; PULSE 74–88; RESP 15–96; TEMP 36.2–36.7; O2SAT 92–97
[2025-01-30 05:45] LABS: Basophils # (Auto) 0.0 Thou/mm3 (0.0-0.2); Basophils % (Auto) 0 % (0-2.5); Eosinophils # (Auto) 0.3 Thou/mm3 (0.0-0.5); Eosinophils % (Auto) 4 % (0-10); Hematocrit 33.0 % (36.0-46.0); Hemoglobin 10.4 g/dL (12.0-16.0); Immature Granulocytes Auto 0.02 Thou/mm3 (0.00-0.00); Lymphocytes # (Auto) 1.6 Thou/mm3 (1.0-4.8); Lymphocytes % (Auto) 19 % (10-50); Mean Corpuscular HGB Conc 31.5 g/dl (31.0-37.0); Mean Corpuscular Hemoglobin 30.1 pg (25.0-35.0); Mean Corpuscular Volume 96 fL (80-100); Monocytes # (Auto) 0.9 Thou/mm3 (0.0-0.8); Monocytes % (Auto) 11 % (0-12); Neutrophils # (Auto) 5.3 Thou/mm3 (1.8-7.7); Neutrophils % (Auto) 66 % (37-80); Nucleated Red Blood Cell # 0.00 Thou/mm3 (0.00-0.00); Nucleated Red Blood Cell % 0 /100 WBC (0); Platelet Count 173 Thou/mm3 (140-440); RDW Standard Deviation 51.4 fL (36.4-46.3); Red Blood Count 3.45 Miln/mm3 (4.00-5.20); White Blood Count 8.0 Thou/mm3 (3.6-11.0)
[2025-01-30 06:33] LABS: Alanine Aminotransferase 8 U/L (10-49); Albumin, Serum 3.5 gm/dL (3.4-4.8); Albumin/Globulin Ratio 1.3 (1.2-2.2); Alkaline Phosphatase 87 U/L (46-116); Anion Gap 13 (7-16); Aspartate Amino Transferase 17 U/L (0-34); BUN/Creatinine Ratio 7 Ratio (12-20); Bilirubin,Total 0.3 mg/dL (0.3-1.2); Blood Urea Nitrogen 46 mg/dL (9-23); Calcium 8.7 mg/dL (8.3-10.6); Calcium (Corrected) 9.1 mg/dL (8.5-10.1); Carbon Dioxide 27.8 mMol/L (20.0-31.0); Chloride 100 mMol/L (98-107); Creatinine (Component) 6.6 mg/dL (0.6-1.3); Estimated Creatinine Clearance 7.8 mL/min (>60); Globulin 2.6 gm/dL (2.3-3.5); Glucose 77 mg/dL (74-106); Magnesium 2.0 mg/dL (1.6-2.6); Osmolality,Calculated 292 (275-295); Phosphorous 5.8 mg/dL (2.4-5.1); Potassium 5.7 mMol/L (3.4-5.1); Sodium 141 mMol/L (136-145); Total Protein 6.1 gm/dL (5.7-8.2); eGFR 7 See Note
--- NOTE | 2025-01-30 09:27 | ESPR_ITS ---
<Statement entered by Douglas Croft MD - 01/30/25 13:25> Patient was examined and case was reviewed with team including attending physician. Note reviewed, I agree with most of its contents and agree with the patient's care as documented by Dr. Santo Patient seen today at the bedside found awake, alert, orientedx3. No overnight events reported. Vitals and labs reviewed. Patient had dialysis yesterday however around lab reviewed today overall seem to have worsened although clinically looks better. Spoke to billing representative in regards to possible dialysis today we will reach back with a decision. Patient already had a GoLytely prep and is scheduled for colonoscopy today. No new episodes of bloody diarrhea noted. Case discussed with my attending Dr. Dick Croft MD PGY-2 Disclaimer: Despite multiple revisions, due to the dictation software being used, the document bellow may not be free of grammatical errors including phonetic/typographic errors. However, this does not deter from our commitment to providing health care in the patient's best interest in mind. Documentation for date of: 01/30/25 Subjective Subjective Interval history: 01/30/25: ANNEMARIE. VSS. Patient remains asymptomatic and continues to have bowel movements. Patient will have colonoscopy later today with Dr. Velasco. Exam Vital Signs Temp Pulse Resp BP Pulse Ox O2 Del Method 97.5 F 80 20 128/65 92 L Room Air 01/30/25 07:58 01/30/25 08:05 01/30/25 08:05 01/30/25 07:58 01/30/25 07:58 01/30/25 07:58 Narrative Exam Gen: Well-developed and well-nourished. obese female sitting comfortably on bed. HEENT: NCAT, EOMI, MMM, anicteric conjunctivae. CVS: normal S1 and S2. RRR. No M/R/G. Resp: CTA B/L. No rhonchi, rales, crackles or wheezing. Ext:warm and well perfused, no pretibial edema noted. fistula noted on anterior left biceps with good thrill. Neuro: No focal deficits. GCS 15 Abdomen: Abdomen is nondistended with no tenderness to palpation. No guarding, rigidity or peritinic sign. Psych: appropriate mood and affect. Objective Labs 01/31/25 05:00 01/31/25 05:23 Labs: Laboratory Results - last 24 hr 01/29/25 01/29/25 01/29/25 13:15 17:14 17:15 WBC 7.2 RBC 3.86 L Hgb 11.9 L 11.4 L Hct 36.4 35.9 L MCV 94 MCH 30.8 MCHC 32.7 RDW Std Deviation 51.6 H Plt Count 196 Neut % (Auto) 72 Lymph % (Auto) 15 [place] % (Auto) 9 Eos % (Auto) 4 Baso % (Auto) 0 Neut # (Auto) 5.2 Lymph # (Auto) 1.1 [place] # (Auto) 0.7 Eos # (Auto) 0.3 Baso # (Auto) 0.0 Immature Gran # (Auto) 0.02 H Absolute Nucleated RBC 0.00 Immature Gran % 0 Nucleated RBC % 0 PT 10.9 INR 1.0 APTT 25.3 Sodium 139 Potassium 5.1 Chloride 100 Carbon Dioxide 29.6 Anion Gap 9 BUN 29 H Creatinine 5.3 H* Estim Creat Clear Calc 9.7 L eGFR 9 L* BUN/Creatinine Ratio 5 L Glucose 130 H Calculated Osmolality 285 Calcium 8.9 Corrected Calcium 9.2 Phosphorus Magnesium Total Bilirubin 0.5 AST 20 ALT < 7 L Alkaline Phosphatase 94 Total Protein 6.2 Albumin 3.6 Globulin 2.6 Albumin/Globulin Ratio 1.4 Stool Occult Blood Positive A Blood Type O Positive Antibody Screen NEGATIVE Blood Bank Wristband ID Yes 01/30/25 05:11 WBC 8.0 RBC 3.45 L Hgb 10.4 L Hct 33.0 L MCV 96 MCH 30.1 MCHC 31.5 RDW Std Deviation 51.4 H Plt Count 173 Neut % (Auto) 66 Lymph % (Auto) 19 [place] % (Auto) 11 Eos % (Auto) 4 Baso % (Auto) 0 Neut # (Auto) 5.3 Lymph # (Auto) 1.6 [place] # (Auto) 0.9 H Eos # (Auto) 0.3 Baso # (Auto) 0.0 Immature Gran # (Auto) 0.02 H Absolute Nucleated RBC 0.00 Immature Gran % 0 Nucleated RBC % 0 PT INR APTT Sodium 141 Potassium 5.7 H D Chloride 100 Carbon Dioxide 27.8 Anion Gap 13 BUN 46 H Creatinine 6.6 H* D Estim Creat Clear Calc 7.8 L eGFR 7 L* BUN/Creatinine Ratio 7 L Glucose 77 D Calculated Osmolality 292 Calcium 8.7 Corrected Calcium 9.1 Phosphorus 5.8 H Magnesium 2.0 Total Bilirubin 0.3 AST 17 ALT 8 L Alkaline Phosphatase 87 Total Protein 6.1 Albumin 3.5 Globulin 2.6 Albumin/Globulin Ratio 1.3 Stool Occult Blood Blood Type Antibody Screen Blood Bank Wristband ID Quality Measures Quality Measures none Assessment & Plan Assessment Current Active Medications: Generic Name Dose Route Start Last Admin Trade Name [place] PRN Reason Stop Dose Admin Acetaminophen 650 mg 01/29/25 16:27 Acetaminophen 325 Mg Tablet PO 02/28/25 16:26 Q6H PRN Fever >101.5 Acetaminophen 650 mg 01/29/25 16:27 Acetaminophen Supp 650 Mg Supp OR 02/28/25 16:26 Q6H PRN PAIN SCALE 1-3 (mild Dextrose 25 ml 01/29/25 20:43 Dextrose 50%-Water Inj 50 Ml Syringe IV 02/28/25 20:42 Q15MIN PRN BG 50-70 responsive npo pt Dextrose 50 ml 01/29/25 20:43 Dextrose 50%-Water Inj 50 Ml Syringe IV 02/28/25 20:42 Q15MIN PRN BG <50 OR BG <70 & pt unresponsive Glucagon 1 mg 01/29/25 20:43 Glucagon Inj 1 Mg Vial IM Q15MIN PRN BG <70, and no IV access Insulin Human Lispro 0 unit 01/29/25 20:45 01/30/25 05:41 Insulin Lispro (Admelog) 1 Unit/0.01 Ml Unit SC 02/28/25 20:44 Not Given Q6HR [facility] Protocol Ondansetron HCl 4 mg 01/29/25 16:27 Ondansetron Inj 2 Mg/Ml Inj 2 Ml IVP 02/28/25 16:26 Q6H PRN NAUSEA OR VOMITING Protocol Pantoprazole Sodium 40 mg 01/30/25 09:00 01/30/25 09:10 Pantoprazole Inj 40 Mg Vial IVP 03/01/25 08:59 40 mg BID [facility] Administration Plan 65F with PMH of ESRD on dialysis MWF with Dr. Roman, DM, HTN, HLD, hyperkalemia who presents to the ED for evaluation of rectal bleeding. Bright red rectal bleeding/diarrhea started at 0100 01/29 with 8-9 additional episodes throughout the day which turned into dark colored in the last episodes. Patient denied any abdominal pain, nausea, vomiting; however, endorsed dizziness. Patient's last colonoscopy was 2 years ago which was normal, per patient. #GI bleeding Bleeding started 01/29 at 0100 which bright red blood per rectum. 8-9x additional episodes which turned dark colored. No previous episodes. On aspirin 81 at home. On exam, patient is hemodynamically stable with no abdominal tenderness. Vital signs stables. Hemoglobin on admission 11.9, now at 10.4. Differentials include but not limited to lower GI bleed such as angiodysplasia, colorectal cancer, internal hemorrhoids, diverticulosis, colonic polyps vs upper GI bleed. Plan: - Monitor Hgb, will consider transfusion if drops below 7 - Pending colonoscopy today with Dr. Velasco - Protonix 40 BID - Patient does not appear hypovolemic on exam, will consider IVF if need, considering ESRD. - Held home aspirin #ESRD on dialysis Dialysis sessions on MWF with Dr. Roman. CMP significant for some electrolyte abnormalities including K of 5.7 and Phos of 5.8 despite receiving dialysis yesterday. We will consult nephrology for possible dialysis today. Plan: - Consulted nephrology, Dr Roman, appreciate recs - Renally dosed medications - Avoid nephrotoxin - Renal diet with low carb #DM Home blood glucose measurement ranging from 180-200. Has not used insulin in 2 months. Plan: - SSI #HTN Chronic. Last measurement 132/62 Plan: - Continue home metoprolol, hydralazine, and amloidipine, Entresto #HLD Chronic -Continue Atorvastatin 40 qday Dispo: Admit to med tele DVT prophylaxis: SCDs GI prophylaxis: Panteprazole 40 BID Bowel reg: none Diet: CLD Pain mgmt: prn Tylenol Lines: peripheral Code status: Full code Plan discussed with Dr. Lancaster and Dr. Dick Santo DO PGY1 Attending Provider Attestation/Addendum Mariam Canada DO, attest that I was physically present for the joseph portions of the service and evaluated the patient with the resident and I reviewed and discussed the case with the resident and agree with the resident's findings and plans of care as documented above Patient seen and evaluated this AM. Patient states she is doing well. Denies further episodes of bleeding. She denies any pain, shortness of breath, nausea, vomiting, fevers or chills. Patient remains on golytely. Tentatively scheduled for colonoscopy this evening.
[2025-01-30] MEDS: SOD POLYSTYRENE SULFON SUSP 15 GM/60 ML BTL 30 GM PO (10:38)
--- NOTE | 2025-01-30 10:44 | PC.SS ---
Caitlin Stanley is a 65-year-old female admitted to Med Surg for GI Bleed. ARACELY conducted bedside contact with the patient to complete initial assessment and to discuss discharge planning, Linda HESS utilized as Monogram Operator. Role and reason explained. Patient confirmed demographic information. Patient identifies Dtr Jacky Evans [phone] as her surrogate decision maker. Pt lives with her , pt states she is able to complete most ADL?s independently but at times requires moderate Assistance, especially on HD days (MWF-Dr. Abel Staples). Pt possesses a rollator walker. Pts PCP is Dr. Croft [facility] (Last viait was in December). Pharmacy of choice is [facility]. Discharge options discussed and the pt wishes to return home.? Family will provide transportation upon DC. No further intervention required at this time, dialysis social worker would be available to address any further concerns. DC Plan: Home Contact: Edinson Address: Confirmed on face sheet PCP: Lang
--- NOTE | 2025-01-30 11:35 | PC.NURSE ---
Patient to Dialysis via bed, stable condition.
--- NOTE | 2025-01-30 14:19 | PC.NURSE ---
PT W/ C/O CRAMPING TO RIGHT LEG, 100ML NS ADMINISTERED, UF GOAL LOWERED TO 0.8L TOLERATED. WILL CONT. TO MONITOR
--- NOTE | 2025-01-30 14:45 | PC.NURSE ---
TX TERMINATED 20 MIN EARLY D/T INCREASED DINKEY DISPATCHER DESPITE ALL INTERVENTIONS. PT DENIES ALL COMPLAINTS, ALL BLOOD RETURNED.
[2025-01-30 14:54] LABS: Albumin, Serum 3.9 gm/dL (3.4-4.8); Anion Gap 13 (7-16); BUN/Creatinine Ratio 6 Ratio (12-20); Blood Urea Nitrogen 24 mg/dL (9-23); Calcium 9.1 mg/dL (8.3-10.6); Calcium (Corrected) 9.2 mg/dL (8.5-10.1); Carbon Dioxide 28.2 mMol/L (20.0-31.0); Chloride 101 mMol/L (98-107); Creatinine (Component) 4.0 mg/dL (0.6-1.3); Estimated Creatinine Clearance 12.9 mL/min (>60); Glucose 94 mg/dL (74-106); Osmolality,Calculated 287 (275-295); Phosphorous 3.1 mg/dL (2.4-5.1); Potassium 3.9 mMol/L (3.4-5.1); Sodium 142 mMol/L (136-145); eGFR 12 See Note
--- NOTE | 2025-01-30 15:01 | PC.NURSE ---
Called OR recovery and informed nurse patient still has sediment with clots, states will let Endo know.
[2025-01-30 16:32] LABS: Hematocrit 35.7 % (36.0-46.0); Hemoglobin 11.4 g/dL (12.0-16.0)
[2025-01-30] MEDS: NA SU/NAHCO3/KC/PEG (Golytely) 4,000 ML BTL 4000 ML PO (16:40)
--- NOTE | 2025-01-30 16:53 | PD.IMPROG ---
Documentation for date of: 01/30/25 Subjective Subjective Interval history: Patient was scheduled for a colonoscopy but she is not clear as she has to go to dialysis and could not finish the GoLytely Clear liquid diet to continue GoLytely to continue Exam Vital Signs Temp Pulse Resp BP Pulse Ox O2 Del Method 98.0 F 80 18 156/70 H 95 Room Air 01/30/25 14:52 01/30/25 15:51 01/30/25 14:52 01/30/25 14:52 01/30/25 14:52 01/30/25 12:00 Objective Labs 01/30/25 15:36 01/30/25 13:55 Labs: Laboratory Results - last 24 hr 01/29/25 01/29/25 01/30/25 17:14 17:15 05:11 WBC 8.0 RBC 3.45 L Hgb 11.4 L 10.4 L Hct 35.9 L 33.0 L MCV 96 MCH 30.1 MCHC 31.5 RDW Std Deviation 51.4 H Plt Count 173 Neut % (Auto) 66 Lymph % (Auto) 19 [place] % (Auto) 11 Eos % (Auto) 4 Baso % (Auto) 0 Neut # (Auto) 5.3 Lymph # (Auto) 1.6 [place] # (Auto) 0.9 H Eos # (Auto) 0.3 Baso # (Auto) 0.0 Immature Gran # (Auto) 0.02 H Absolute Nucleated RBC 0.00 Immature Gran % 0 Nucleated RBC % 0 Sodium 141 Potassium 5.7 H D Chloride 100 Carbon Dioxide 27.8 Anion Gap 13 BUN 46 H Creatinine 6.6 H* D Estim Creat Clear Calc 7.8 L eGFR 7 L* BUN/Creatinine Ratio 7 L Glucose 77 D Calculated Osmolality 292 Calcium 8.7 Corrected Calcium 9.1 Phosphorus 5.8 H Magnesium 2.0 Total Bilirubin 0.3 AST 17 ALT 8 L Alkaline Phosphatase 87 Total Protein 6.1 Albumin 3.5 Globulin 2.6 Albumin/Globulin Ratio 1.3 Stool Occult Blood Positive A 01/30/25 01/30/25 13:55 15:36 WBC RBC Hgb 11.4 L Hct 35.7 L MCV MCH MCHC RDW Std Deviation Plt Count Neut % (Auto) Lymph % (Auto) [place] % (Auto) Eos % (Auto) Baso % (Auto) Neut # (Auto) Lymph # (Auto) [place] # (Auto) Eos # (Auto) Baso # (Auto) Immature Gran # (Auto) Absolute Nucleated RBC Immature Gran % Nucleated RBC % Sodium 142 Potassium 3.9 D Chloride 101 Carbon Dioxide 28.2 Anion Gap 13 BUN 24 H Creatinine 4.0 H D Estim Creat Clear Calc 12.9 L eGFR 12 L* BUN/Creatinine Ratio 6 L Glucose 94 Calculated Osmolality 287 Calcium 9.1 Corrected Calcium 9.2 Phosphorus 3.1 Magnesium Total Bilirubin AST ALT Alkaline Phosphatase Total Protein Albumin 3.9 Globulin Albumin/Globulin Ratio Stool Occult Blood Impressions Impression: Hematochezia GoLytely prep to continue Clear liquid diet as long as patient is drinking GoLytely Colonoscopy postponed to tomorrow Assessment & Plan A&P Narrative # hematochezia recommendations clear liquid diet GoLytely prep Consent obtained for fiberoptic colonoscopy with possible biopsy possible therapeutic intervention under intravenous moderate sedation tentatively scheduled for tomorrow # End-stage renal disease on hemodialysis Thank you very much for the opportunity to participate in the care of this patient Time Spent With Patient Time: Total time spent is greater than 50% in coordination of care (as documented) at patient's floor/unit and/or counseling patient:
[2025-01-30 18:24] LABS: INR 1.0 (0.9-1.3); Partial Thromboplastin Time 25.3 Seconds (22.0-36.0); Prothrombin Time 11.0 Seconds (9.0-12.2)
[2025-01-31] VITALS (21 sets, daily range): BP systolic 99–157; BP diastolic 44–75; PULSE 68–94; RESP 14–100; TEMP 36.1–36.7; O2SAT 91–100
[2025-01-31 06:09] LABS: Basophils # (Auto) 0.0 Thou/mm3 (0.0-0.2); Basophils % (Auto) 0 % (0-2.5); Eosinophils # (Auto) 0.3 Thou/mm3 (0.0-0.5); Eosinophils % (Auto) 5 % (0-10); Hematocrit 29.9 % (36.0-46.0); Hemoglobin 9.5 g/dL (12.0-16.0); Immature Granulocytes Auto 0.01 Thou/mm3 (0.00-0.00); Lymphocytes # (Auto) 1.3 Thou/mm3 (1.0-4.8); Lymphocytes % (Auto) 27 % (10-50); Mean Corpuscular HGB Conc 31.8 g/dl (31.0-37.0); Mean Corpuscular Hemoglobin 30.1 pg (25.0-35.0); Mean Corpuscular Volume 95 fL (80-100); Monocytes # (Auto) 0.6 Thou/mm3 (0.0-0.8); Monocytes % (Auto) 12 % (0-12); Neutrophils # (Auto) 2.6 Thou/mm3 (1.8-7.7); Neutrophils % (Auto) 55 % (37-80); Nucleated Red Blood Cell # 0.00 Thou/mm3 (0.00-0.00); Nucleated Red Blood Cell % 0 /100 WBC (0); Platelet Count 161 Thou/mm3 (140-440); RDW Standard Deviation 49.2 fL (36.4-46.3); Red Blood Count 3.16 Miln/mm3 (4.00-5.20); White Blood Count 4.8 Thou/mm3 (3.6-11.0)
[2025-01-31 07:37] LABS: Alanine Aminotransferase < 7 U/L (10-49); Albumin, Serum 3.4 gm/dL (3.4-4.8); Albumin/Globulin Ratio 1.4 (1.2-2.2); Alkaline Phosphatase 82 U/L (46-116); Anion Gap 13 (7-16); Aspartate Amino Transferase 19 U/L (0-34); BUN/Creatinine Ratio 4 Ratio (12-20); Bilirubin,Total 0.5 mg/dL (0.3-1.2); Blood Urea Nitrogen 22 mg/dL (9-23); Calcium 9.0 mg/dL (8.3-10.6); Calcium (Corrected) 9.5 mg/dL (8.5-10.1); Carbon Dioxide 28.8 mMol/L (20.0-31.0); Chloride 98 mMol/L (98-107); Creatinine (Component) 5.1 mg/dL (0.6-1.3); Estimated Creatinine Clearance 10.1 mL/min (>60); Globulin 2.4 gm/dL (2.3-3.5); Glucose 67 mg/dL (74-106); Magnesium 1.7 mg/dL (1.6-2.6); Osmolality,Calculated 280 (275-295); Phosphorous 5.5 mg/dL (2.4-5.1); Potassium 4.8 mMol/L (3.4-5.1); Sodium 140 mMol/L (136-145); Total Protein 5.8 gm/dL (5.7-8.2); eGFR 9 See Note
--- NOTE | 2025-01-31 08:04 | ESPR_ITS ---
<Statement entered by Douglas Croft MD - 01/31/25 12:40> Patient was examined and case was reviewed with team including attending physician. Note reviewed, I agree with most of its contents and agree with the patient's care as documented by Dr. Sow Patient seen today at the bedside found awake, alert, orientedx3. No overnight events reported. Vitals and labs reviewed. Patient was scheduled to have colonoscopy yesterday however patient was not clear therefore procedure was postponed today. Patient on his second gallon of GoLytely. Patient does endorse that he continues to have bloody diarrhea, patient left the sample in the toilet bowl for the IM team to see. Will continue to monitor postprocedure which will be done by GI specialist today. Case discussed with my attending Dr. Dick Croft MD PGY-2 Disclaimer: Despite multiple revisions, due to the dictation software being used, the document bellow may not be free of grammatical errors including phonetic/typographic errors. However, this does not deter from our commitment to providing health care in the patient's best interest in mind. Documentation for date of: 01/31/25 Subjective Subjective Interval history: Patient was seen at the bedside with her . No overnight events were reported. The patient was scheduled for a colonoscopy yesterday but postponed due to inadequate bowel preparation. The colonoscopy is now planned for today. The patient reports she was able to complete the second gallon of GoLytely. She continues to experience bloody diarrhea but denies nausea or vomiting. She reports her last dialysis session was yesterday and states that she cannot make urine. Exam Vital Signs Temp Pulse Resp BP Pulse Ox O2 Del Method 97.8 F 83 17 127/55 L 98 Room Air 01/31/25 07:51 01/31/25 07:55 01/31/25 07:51 01/31/25 07:51 01/31/25 07:51 01/31/25 07:51 Narrative Exam Physical Exam General: Awake and in no acute distress. Conversational and non-toxic appearing. HEENT: Normocephalic, atraumatic. Heart: Regular rate and rhythm, no murmurs. Lungs: Clear to auscultation with no wheezing or crackles. Abdomen: Soft, nondistended, nontender, positive bowel sounds. No guarding or rebound tenderness. Neurologic: Alert and oriented x3, no gross neurological deficit, and patient able to move all 4 extremities. Extremities: No edema. Fistula on anterior left biceps. Skin: No rash or ecchymoses. Objective Labs 02/01/25 05:01 02/01/25 05:01 Labs: Laboratory Results - last 24 hr 01/30/25 01/30/25 01/30/25 13:55 15:36 17:27 WBC RBC Hgb 11.4 L Hct 35.7 L MCV MCH MCHC RDW Std Deviation Plt Count Neut % (Auto) Lymph % (Auto) [place] % (Auto) Eos % (Auto) Baso % (Auto) Neut # (Auto) Lymph # (Auto) [place] # (Auto) Eos # (Auto) Baso # (Auto) Immature Gran # (Auto) Absolute Nucleated RBC Immature Gran % Nucleated RBC % PT 11.0 INR 1.0 APTT 25.3 Sodium 142 Potassium 3.9 D Chloride 101 Carbon Dioxide 28.2 Anion Gap 13 BUN 24 H Creatinine 4.0 H D Estim Creat Clear Calc 12.9 L eGFR 12 L* BUN/Creatinine Ratio 6 L Glucose 94 Calculated Osmolality 287 Calcium 9.1 Corrected Calcium 9.2 Phosphorus 3.1 Magnesium Total Bilirubin AST ALT Alkaline Phosphatase Total Protein Albumin 3.9 Globulin Albumin/Globulin Ratio 01/31/25 01/31/25 05:00 05:23 WBC 4.8 RBC 3.16 L Hgb 9.5 L Hct 29.9 L MCV 95 MCH 30.1 MCHC 31.8 RDW Std Deviation 49.2 H Plt Count 161 Neut % (Auto) 55 Lymph % (Auto) 27 [place] % (Auto) 12 Eos % (Auto) 5 Baso % (Auto) 0 Neut # (Auto) 2.6 Lymph # (Auto) 1.3 [place] # (Auto) 0.6 Eos # (Auto) 0.3 Baso # (Auto) 0.0 Immature Gran # (Auto) 0.01 H Absolute Nucleated RBC 0.00 Immature Gran % 0 Nucleated RBC % 0 PT INR APTT Sodium 140 Potassium 4.8 D Chloride 98 Carbon Dioxide 28.8 Anion Gap 13 BUN 22 Creatinine 5.1 H* D Estim Creat Clear Calc 10.1 L eGFR 9 L* BUN/Creatinine Ratio 4 L Glucose 67 L Calculated Osmolality 280 Calcium 9.0 Corrected Calcium 9.5 Phosphorus 5.5 H Magnesium 1.7 Total Bilirubin 0.5 AST 19 ALT < 7 L Alkaline Phosphatase 82 Total Protein 5.8 Albumin 3.4 D Globulin 2.4 Albumin/Globulin Ratio 1.4 Quality Measures Quality Measures none Assessment & Plan Assessment Current Active Medications: Generic Name Dose Route Start Last Admin Trade Name Freq PRN Reason Stop Dose Admin Acetaminophen 650 mg 01/29/25 16:27 Acetaminophen 325 Mg Tablet PO 02/28/25 16:26 Q6H PRN Fever >101.5 Acetaminophen 650 mg 01/29/25 16:27 Acetaminophen Supp 650 Mg Supp [place] 02/28/25 16:26 Q6H PRN PAIN SCALE 1-3 (mild Amlodipine Besylate 10 mg 01/31/25 09:00 Amlodipine Besylate 5 Mg Tablet PO 03/02/25 08:59 DAILY [facility] Atorvastatin Calcium 40 mg 01/31/25 21:00 Atorvastatin Calcium 20 Mg Tablet PO 03/02/25 20:59 [facility] Sacubitril-Valsartan 0 ea 01/31/25 09:00 [Entresto] 97/103 PO 03/02/25 08:59 Mg BID SILVANA Dextrose 25 ml 01/29/25 20:43 Dextrose 50%-Water Inj 50 Ml Syringe IV 02/28/25 20:42 Q15MIN PRN BG 50-70 responsive npo pt Dextrose 50 ml 01/29/25 20:43 Dextrose 50%-Water Inj 50 Ml Syringe IV 02/28/25 20:42 Q15MIN PRN BG <50 OR BG <70 & pt unresponsive Glucagon 1 mg 01/29/25 20:43 Glucagon Inj 1 Mg Vial IM Q15MIN PRN BG <70, and no IV access Hydralazine HCl 25 mg 01/31/25 09:00 Hydralazine Hcl 25 Mg Tablet PO 03/02/25 08:59 TID [facility] Albumin Human 25 gm in 100 mls @ 100 mls/min 01/30/25 11:35 Albuminar-25 Ivpb IV PRN PRN DIALYSIS Insulin Human Lispro 0 unit 01/29/25 20:45 01/31/25 05:45 Insulin Lispro (Admelog) 1 Unit/0.01 Ml Unit SC 02/28/25 20:44 Not Given Q6HR [facility] Protocol Metoprolol Succinate 50 mg 01/31/25 09:00 Metoprolol Succinate Xl 25 Mg Tabcr PO 03/02/25 08:59 DAILY [facility] Ondansetron HCl 4 mg 01/29/25 16:27 Ondansetron Inj 2 Mg/Ml Inj 2 Ml IVP 02/28/25 16:26 Q6H PRN NAUSEA OR VOMITING Protocol Pantoprazole Sodium 40 mg 01/30/25 09:00 01/30/25 20:36 Pantoprazole Inj 40 Mg Vial IVP 03/01/25 08:59 40 mg BID SILVANA Administration Plan 65 year-old female with past medical history of ESRD on dialysis MWF with Dr. Roman, DM, HTN, HLD, hyperkalemia who presents to the ED for evaluation of rectal bleeding. Bright red rectal bleeding/diarrhea started at 0100 01/29 with 8-9 additional episodes throughout the day which turned into dark colored in the last episodes. Patient denied any abdominal pain, nausea, vomiting; however, endorsed dizziness. Patient's last colonoscopy was 2 years ago which was normal, per patient. #Lower GI bleeding #Left-sided diverticular bleed #Diverticulosis #Hemorrhoids #Sessile polyp on sigmoid colon Bleeding started 01/29 at 0100 which bright red blood per rectum. 8-9x additional episodes which turned dark colored. No previous episodes. On aspirin 81 at home. On exam, patient is hemodynamically stable with no abdominal tenderness. Vital signs stables. Hemoglobin on admission 11.9 --> 10.4 --> 9.5. Differentials include but not limited to lower GI bleed such as angiodysplasia, colorectal cancer, internal hemorrhoids, diverticulosis, colonic polyps vs upper GI bleed. Colonoscopy (01/31): hemorrhoids on perianal exam, multiple large-mouthed diverticula found in sigmoid colon and descending colon. Evidence of recent bleeding from the diverticular opening. One large polyp in sigmoid colon which was removed. Mucosal ulceration in transverse colon. Fresh blood seen in the left colon in the midst of severe diverticulosis. Plan: - Monitor Hgb, transfusion if drops below 7. - Protonix 40 BID. - Held home aspirin. - Start full liquid diet today. #ESRD on dialysis Dialysis sessions on MWF with Dr. Roman. Hyperkalemia resolved. Elevated phosphate 5.5 despite receiving dialysis yesterday (01/30) Plan: - Consulted nephrology, Dr Roman, appreciate recs. - Renally dosed medications. - Avoid nephrotoxin. #DM Home blood glucose measurement ranging from 180-200. Has not used insulin in 2 months. Plan: - SSI #HTN Chronic. Plan: - Continue home metoprolol, hydralazine, and amloidipine. - Held Entresto (01/31) because BP was low. #HLD Chronic Plan -Continue Atorvastatin 40 qday. Health Maintenance: Dispo: Admit to [facility] DVT prophylaxis: SCDs GI prophylaxis: Panteprazole 40 BID Diet: Full liquid diet Pain mgmt: prn Tylenol Lines: peripheral Code status: Full code Patient plan of care was discussed with the senior resident, Dr. Quiroz, and attending physician, Dr. Jennings. Mo Sow DO PGY-1 Attending Provider Attestation/Addendum I, Mariam Jennings DO, attest that I was physically present for the joseph portions of the service and evaluated the patient with the resident and I reviewed and discussed the case with the resident and agree with the resident's findings and plans of care as documented above Patient seen and evaluated this AM. Patient reports having blood in her BM, but remains liquid. BM appears maroon in color. Pending colonoscopy this evening. Patient should not be on entresto or lasix as patient has had hyperkalemia on several occasions in the setting of HD, and the latter, does not produce urine. The risk outweighs the benefits. 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 Will f/u with colonoscopy results. H/H shows 2 point drop. Patient otherwise hemodynamically stable.
[2025-01-31] MEDS: METOPROLOL SUCCINATE XL 25 MG TABCR 50 MG PO (09:01)
[2025-01-31] MEDS: SACUBITRIL VALSARTAN PO (09:02)
--- NOTE | 2025-01-31 10:59 | PC.NURSE ---
Patient to endo via gurney, stable condition.
--- NOTE | 2025-01-31 12:00 | PC.NURSE ---
Patient does not want to sign consent for pericardiocentecis, patient states does not really understand procedure and would like MD to explain procedure using employee's representative. OSIEL [id number]. RN called Dr. Stevenson and informed him. Dr. Stevenson states will come talk to patient when he's free.
[2025-01-31] MEDS: ATORVASTATIN CALCIUM 20 MG TABLET 40 MG PO (20:15)
[2025-02-01] VITALS (27 sets, daily range): BP systolic 111–139; BP diastolic 47–66; PULSE 69–96; RESP 15–19; TEMP 36.1–36.6; O2SAT 92–99; BMI 29.1
[2025-02-01 06:28] LABS: Basophils # (Auto) 0.0 Thou/mm3 (0.0-0.2); Basophils % (Auto) 0 % (0-2.5); Eosinophils # (Auto) 0.3 Thou/mm3 (0.0-0.5); Eosinophils % (Auto) 5 % (0-10); Hematocrit 28.6 % (36.0-46.0); Hemoglobin 9.1 g/dL (12.0-16.0); Immature Granulocytes Auto 0.02 Thou/mm3 (0.00-0.00); Lymphocytes # (Auto) 1.7 Thou/mm3 (1.0-4.8); Lymphocytes % (Auto) 28 % (10-50); Mean Corpuscular HGB Conc 31.8 g/dl (31.0-37.0); Mean Corpuscular Hemoglobin 30.1 pg (25.0-35.0); Mean Corpuscular Volume 95 fL (80-100); Monocytes # (Auto) 0.7 Thou/mm3 (0.0-0.8); Monocytes % (Auto) 11 % (0-12); Neutrophils # (Auto) 3.4 Thou/mm3 (1.8-7.7); Neutrophils % (Auto) 57 % (37-80); Nucleated Red Blood Cell # 0.00 Thou/mm3 (0.00-0.00); Nucleated Red Blood Cell % 0 /100 WBC (0); Platelet Count 163 Thou/mm3 (140-440); RDW Standard Deviation 48.5 fL (36.4-46.3); Red Blood Count 3.02 Miln/mm3 (4.00-5.20); White Blood Count 6.0 Thou/mm3 (3.6-11.0)
[2025-02-01 07:20] LABS: Alanine Aminotransferase < 7 U/L (10-49); Albumin, Serum 3.2 gm/dL (3.4-4.8); Albumin/Globulin Ratio 1.5 (1.2-2.2); Alkaline Phosphatase 79 U/L (46-116); Anion Gap 14 (7-16); Aspartate Amino Transferase 18 U/L (0-34); BUN/Creatinine Ratio 4 Ratio (12-20); Bilirubin,Total 0.4 mg/dL (0.3-1.2); Blood Urea Nitrogen 28 mg/dL (9-23); Calcium 8.7 mg/dL (8.3-10.6); Calcium (Corrected) 9.3 mg/dL (8.5-10.1); Carbon Dioxide 26.1 mMol/L (20.0-31.0); Chloride 98 mMol/L (98-107); Creatinine (Component) 7.1 mg/dL (0.6-1.3); Estimated Creatinine Clearance 7.3 mL/min (>60); Globulin 2.2 gm/dL (2.3-3.5); Glucose 63 mg/dL (74-106); Magnesium 2.0 mg/dL (1.6-2.6); Osmolality,Calculated 279 (275-295); Phosphorous 8.0 mg/dL (2.4-5.1); Potassium 5.7 mMol/L (3.4-5.1); Sodium 138 mMol/L (136-145); Total Protein 5.4 gm/dL (5.7-8.2); eGFR 6 See Note
--- NOTE | 2025-02-01 08:08 | ESPR_ITS ---
<Statement entered by Douglas Croft MD - 02/01/25 15:05> Patient was examined and case was reviewed with team including attending physician. Note reviewed, I agree with most of its contents and agree with the patient's care as documented by Dr. Santo Patient seen today at the bedside found awake, alert, orientedx3. No overnight events reported. Vitals and labs reviewed. No active complaints at this time. Spoke to gem carver who recommended to continue to monitor hemoglobin at this time. If continues to trend down patient will likely need IR embolization due to her bleeding. Patient at this time reports no new episodes of active bleeding. Denies blood in the stool or hematemesis. Case discussed with my attending Dr. Dick Croft MD PGY-2 Disclaimer: Despite multiple revisions, due to the dictation software being used, the document bellow may not be free of grammatical errors including phonetic/typographic errors. However, this does not deter from our commitment to providing health care in the patient's best interest in mind. Documentation for date of: 02/01/25 Subjective Subjective Interval history: 02/01/25: CARLOSEON. VSS. Patient still reports no abdominal pain, fever, chills. Spoke with Dr. Velasco regarding patient's dispo. Dr. Velasco recommended continuation of current liquid diet and monitor CBC and CMP tomorrow. Exam Vital Signs Temp Pulse Resp BP Pulse Ox O2 Del Method O2 Flow Rate 96.9 F 78 15 130/63 99 Room Air 2 02/01/25 07:10 02/01/25 07:10 02/01/25 07:10 02/01/25 07:10 02/01/25 07:10 02/01/25 07:10 02/01/25 04:00 Narrative Exam Gen: Well-developed and well-nourished. obese female sitting comfortably on bed. HEENT: NCAT, EOMI, MMM, anicteric conjunctivae. CVS: normal S1 and S2. RRR. No M/R/G. Resp: CTA B/L. No rhonchi, rales, crackles or wheezing. Ext:warm and well perfused, no pretibial edema noted. fistula noted on anterior left biceps with good thrill. Neuro: No focal deficits. GCS 15 Abdomen: Abdomen is nondistended with no tenderness to palpation. No guarding, rigidity or peritinic sign. Psych: appropriate mood and affect. Objective Labs 02/02/25 05:59 02/02/25 05:59 Labs: Laboratory Results - last 24 hr 02/01/25 05:01 WBC 6.0 RBC 3.02 L Hgb 9.1 L Hct 28.6 L MCV 95 MCH 30.1 MCHC 31.8 RDW Std Deviation 48.5 H Plt Count 163 Neut % (Auto) 57 Lymph % (Auto) 28 [place] % (Auto) 11 Eos % (Auto) 5 Baso % (Auto) 0 Neut # (Auto) 3.4 Lymph # (Auto) 1.7 [place] # (Auto) 0.7 Eos # (Auto) 0.3 Baso # (Auto) 0.0 Immature Gran # (Auto) 0.02 H Absolute Nucleated RBC 0.00 Immature Gran % 0 Nucleated RBC % 0 Sodium 138 Potassium 5.7 H D Chloride 98 Carbon Dioxide 26.1 Anion Gap 14 BUN 28 H Creatinine 7.1 H* D Estim Creat Clear Calc 7.3 L eGFR 6 L* BUN/Creatinine Ratio 4 L Glucose 63 L Calculated Osmolality 279 Calcium 8.7 Corrected Calcium 9.3 Phosphorus 8.0 H Magnesium 2.0 Total Bilirubin 0.4 AST 18 ALT < 7 L Alkaline Phosphatase 79 Total Protein 5.4 L Albumin 3.2 L Globulin 2.2 L Albumin/Globulin Ratio 1.5 Quality Measures Quality Measures none Assessment & Plan Assessment Current Active Medications: Generic Name Dose Route Start Last Admin Trade Name Freq PRN Reason Stop Dose Admin Acetaminophen 650 mg 01/29/25 16:27 Acetaminophen 325 Mg Tablet PO 02/28/25 16:26 Q6H PRN Fever >101.5 Acetaminophen 650 mg 01/29/25 16:27 Acetaminophen Supp 650 Mg Supp [place] 02/28/25 16:26 Q6H PRN PAIN SCALE 1-3 (mild Amlodipine Besylate 10 mg 01/31/25 09:00 01/31/25 09:01 Amlodipine Besylate 5 Mg Tablet PO 03/02/25 08:59 10 mg DAILY [facility] Administration Atorvastatin Calcium 40 mg 01/31/25 21:00 01/31/25 20:15 Atorvastatin Calcium 20 Mg Tablet PO 03/02/25 20:59 40 mg HS SILVANA Administration Sacubitril-Valsartan 0 ea 01/31/25 09:00 01/31/25 09:02 [Entresto] 97/103 PO 03/02/25 08:59 1 tablet Mg BID SILVANA Administration Dextrose 25 ml 01/29/25 20:43 Dextrose 50%-Water Inj 50 Ml Syringe IV 02/28/25 20:42 Q15MIN PRN BG 50-70 responsive npo pt Dextrose 50 ml 01/29/25 20:43 Dextrose 50%-Water Inj 50 Ml Syringe IV 02/28/25 20:42 Q15MIN PRN BG <50 OR BG <70 & pt unresponsive Glucagon 1 mg 01/29/25 20:43 Glucagon Inj 1 Mg Vial IM Q15MIN PRN BG <70, and no IV access Hydralazine HCl 25 mg 01/31/25 09:00 02/01/25 05:44 Hydralazine Hcl 25 Mg Tablet PO 03/02/25 08:59 Not Given TID SILVANA Albumin Human 25 gm in 100 mls @ 100 mls/min 01/30/25 11:35 Albuminar-25 Ivpb IV PRN PRN DIALYSIS Insulin Human Lispro 0 unit 01/31/25 21:00 02/01/25 07:20 Insulin Lispro (Admelog) 1 Unit/0.01 Ml Unit SC 03/02/25 20:59 Not Given ACHS [facility] Protocol Metoprolol Succinate 50 mg 01/31/25 09:00 01/31/25 09:01 Metoprolol Succinate Xl 25 Mg Tabcr PO 03/02/25 08:59 50 mg DAILY [facility] Administration Ondansetron HCl 4 mg 01/29/25 16:27 Ondansetron Inj 2 Mg/Ml Inj 2 Ml IVP 02/28/25 16:26 Q6H PRN NAUSEA OR VOMITING Protocol Pantoprazole Sodium 40 mg 01/30/25 09:00 01/31/25 20:15 Pantoprazole Inj 40 Mg Vial IVP 03/01/25 08:59 40 mg BID SILVANA Administration Plan 65 year-old female with past medical history of ESRD on dialysis MWF with Dr. Roman, DM, HTN, HLD, hyperkalemia who presents to the ED for evaluation of rectal bleeding. Bright red rectal bleeding/diarrhea started at 0100 8 with 8-9 additional episodes throughout the day which turned into dark colored in the last episodes. Patient denied any abdominal pain, nausea, vomiting; however, endorsed dizziness. Patient's last colonoscopy was 2 years ago which was normal, per patient. #Left-sided diverticular bleed #Lower GI bleeding #Diverticulosis #Hemorrhoids #Sessile polyp on sigmoid colon Bleeding started 01/29 at 0100 which bright red blood per rectum. 8-9x additional episodes which turned dark colored. No previous episodes. On aspirin 81 at home. On exam, patient is hemodynamically stable with no abdominal tenderness. Vital signs stables. Hemoglobin on admission 11.9 --> 10.4 --> 9.5 --> 9.1 (02/01) Differentials include but not limited to lower GI bleed such as angiodysplasia, colorectal cancer, internal hemorrhoids, diverticulosis, colonic polyps vs upper GI bleed. Colonoscopy (01/31): hemorrhoids on perianal exam, multiple large-mouthed diverticula found in sigmoid colon and descending colon. Evidence of recent bleeding from the diverticular opening. One large polyp in sigmoid colon which was removed. Mucosal ulceration in transverse colon. Fresh blood seen in the left colon in the midst of severe diverticulosis. Spoke with GI Dr. Velasco who recommended continuation of current liquid diet. Montior CBC and CMP and reassess tomorrow. Patient's diverticular bleeding most likley resolve on its own; however, if persistent bleeding she may benefit from other options such as selective embolization. Plan: - Monitor Hgb, transfusion if drops below 7. - Protonix 40 BID. - Held home aspirin. - Continue full liquid diet #ESRD on dialysis Dialysis sessions on MWF with Dr. Roman. K:5.7, Phos: 8 Plan: - Dialysis today - Renally dosed medications. - Avoid nephrotoxin. #DM Home blood glucose measurement ranging from 180-200. Has not used insulin in 2 months. Finger blood glucose: 70 Blood glucose: 63 Plan: - SSI #HTN Chronic. Plan: - Continue home metoprolol, hydralazine, and amloidipine. - Held Entresto (01/31) because BP was low. #HLD Chronic Plan -Continue Atorvastatin 40 qday. Health Maintenance: Dispo: Admit to [facility] DVT prophylaxis: SCDs GI prophylaxis: Panteprazole 40 BID Diet: Full liquid diet Pain mgmt: prn Tylenol Lines: peripheral Code status: Full code Patient plan of care was discussed with the senior resident, Dr. Quiroz, and attending physician, Dr. Jennings. James Santo DO PGY-1 Attending Provider Attestation/Addendum Dread, Mariam Jennings DO, attest that I was physically present for the joseph portions of the service and evaluated the patient with the resident and I reviewed and discussed the case with the resident and agree with the resident's findings and plans of care as documented above Patient seen and evaluated this Am. Patient underwent colonoscopy overnight during which patient was found to have severe diverticulosis in left side of colon with evidence of recent bleeding. She also had an ulceration in the transverse colon. Patient otherwise states she is doing well. Hgb appears to be stable and patient is hemodynamically stable. Will keep on CLD and monitor h/h overnight as per GI recommendations. If Hgb remains stable and patient is hemodynamically stable, anticipate DC within next 24h.
[2025-02-01] MEDS: METOPROLOL SUCCINATE XL 25 MG TABCR 50 MG PO (08:25)
--- NOTE | 2025-02-01 10:55 | PC.SS ---
SS follow up note; Patient is pending GI Rec's. Patient will discharge home when medically cleared.
--- NOTE | 2025-02-01 17:09 | ESPR_ITS ---
Documentation for date of: 02/01/25 Subjective Subjective Interval history: Case discussed with the internal medicine team patient on full liquid diet Hemoglobin hematocrit 9.1 and 28.6 Exam Vital Signs Temp Pulse Resp BP Pulse Ox O2 Del Method O2 Flow Rate 97.3 F 74 18 128/59 L 94 L Room Air 2 02/01/25 16:47 02/01/25 17:01 02/01/25 16:47 02/01/25 17:01 02/01/25 16:47 02/01/25 11:00 02/01/25 04:00 Objective Labs 02/01/25 05:01 02/01/25 05:01 Labs: Laboratory Results - last 24 hr 02/01/25 05:01 WBC 6.0 RBC 3.02 L Hgb 9.1 L Hct 28.6 L MCV 95 MCH 30.1 MCHC 31.8 RDW Std Deviation 48.5 H Plt Count 163 Neut % (Auto) 57 Lymph % (Auto) 28 [place] % (Auto) 11 Eos % (Auto) 5 Baso % (Auto) 0 Neut # (Auto) 3.4 Lymph # (Auto) 1.7 [place] # (Auto) 0.7 Eos # (Auto) 0.3 Baso # (Auto) 0.0 Immature Gran # (Auto) 0.02 H Absolute Nucleated RBC 0.00 Immature Gran % 0 Nucleated RBC % 0 Sodium 138 Potassium 5.7 H D Chloride 98 Carbon Dioxide 26.1 Anion Gap 14 BUN 28 H Creatinine 7.1 H* D Estim Creat Clear Calc 7.3 L eGFR 6 L* BUN/Creatinine Ratio 4 L Glucose 63 L Calculated Osmolality 279 Calcium 8.7 Corrected Calcium 9.3 Phosphorus 8.0 H Magnesium 2.0 Total Bilirubin 0.4 AST 18 ALT < 7 L Alkaline Phosphatase 79 Total Protein 5.4 L Albumin 3.2 L Globulin 2.2 L Albumin/Globulin Ratio 1.5 Impressions Impression: Diverticular source of bleeding left-sided Continue current management Assessment & Plan A&P Narrative # hematochezia recommendations clear liquid diet GoLytely prep Consent obtained for fiberoptic colonoscopy with possible biopsy possible therapeutic intervention under intravenous moderate sedation tentatively scheduled for tomorrow # End-stage renal disease on hemodialysis Thank you very much for the opportunity to participate in the care of this patient Time Spent With Patient Time: Total time spent is greater than 50% in coordination of care (as documented) at patient's floor/unit and/or counseling patient:
[2025-02-01] MEDS: ATORVASTATIN CALCIUM 20 MG TABLET 40 MG PO (21:09)
[2025-02-02] VITALS (7 sets, daily range): BP systolic 124–133; BP diastolic 52–60; PULSE 78–88; RESP 15–18; TEMP 36.2–36.8; O2SAT 95–98
[2025-02-02 06:29] LABS: Basophils # (Auto) 0.0 Thou/mm3 (0.0-0.2); Basophils % (Auto) 0 % (0-2.5); Eosinophils # (Auto) 0.3 Thou/mm3 (0.0-0.5); Eosinophils % (Auto) 4 % (0-10); Hematocrit 30.4 % (36.0-46.0); Hemoglobin 9.7 g/dL (12.0-16.0); Immature Granulocytes Auto 0.02 Thou/mm3 (0.00-0.00); Lymphocytes # (Auto) 1.4 Thou/mm3 (1.0-4.8); Lymphocytes % (Auto) 21 % (10-50); Mean Corpuscular HGB Conc 31.9 g/dl (31.0-37.0); Mean Corpuscular Hemoglobin 30.0 pg (25.0-35.0); Mean Corpuscular Volume 94 fL (80-100); Monocytes # (Auto) 0.6 Thou/mm3 (0.0-0.8); Monocytes % (Auto) 9 % (0-12); Neutrophils # (Auto) 4.3 Thou/mm3 (1.8-7.7); Neutrophils % (Auto) 65 % (37-80); Nucleated Red Blood Cell # 0.00 Thou/mm3 (0.00-0.00); Nucleated Red Blood Cell % 0 /100 WBC (0); Platelet Count 182 Thou/mm3 (140-440); RDW Standard Deviation 47.8 fL (36.4-46.3); Red Blood Count 3.23 Miln/mm3 (4.00-5.20); White Blood Count 6.6 Thou/mm3 (3.6-11.0)
[2025-02-02 07:09] LABS: Alanine Aminotransferase 9 U/L (10-49); Albumin, Serum 3.6 gm/dL (3.4-4.8); Albumin/Globulin Ratio 1.4 (1.2-2.2); Alkaline Phosphatase 94 U/L (46-116); Anion Gap 10 (7-16); Aspartate Amino Transferase 22 U/L (0-34); BUN/Creatinine Ratio 3 Ratio (12-20); Bilirubin,Total 0.4 mg/dL (0.3-1.2); Blood Urea Nitrogen 15 mg/dL (9-23); Calcium 8.9 mg/dL (8.3-10.6); Calcium (Corrected) 9.2 mg/dL (8.5-10.1); Carbon Dioxide 29.7 mMol/L (20.0-31.0); Chloride 102 mMol/L (98-107); Creatinine (Component) 5.0 mg/dL (0.6-1.3); Estimated Creatinine Clearance 10.3 mL/min (>60); Globulin 2.5 gm/dL (2.3-3.5); Glucose 87 mg/dL (74-106); Magnesium 1.9 mg/dL (1.6-2.6); Osmolality,Calculated 282 (275-295); Phosphorous 6.1 mg/dL (2.4-5.1); Potassium 5.2 mMol/L (3.4-5.1); Sodium 142 mMol/L (136-145); Total Protein 6.1 gm/dL (5.7-8.2); eGFR 9 See Note
--- NOTE | 2025-02-02 08:11 | PD.RESPRO ---
Documentation for date of: 02/02/25 Subjective Subjective Interval history: 02/02/25: NAEON. PIERRE. Exam Vital Signs Temp Pulse Resp BP Pulse Ox O2 Del Method O2 Flow Rate 97.2 F 84 18 131/60 H 98 Room Air 2 02/02/25 07:38 02/02/25 07:38 02/02/25 07:38 02/02/25 07:38 02/02/25 07:38 02/02/25 07:38 02/01/25 04:00 Narrative Exam Gen: Well-developed and well-nourished. obese female sitting comfortably on bed. HEENT: NCAT, EOMI, MMM, anicteric conjunctivae. CVS: normal S1 and S2. RRR. No M/R/G. Resp: CTA B/L. No rhonchi, rales, crackles or wheezing. Ext:warm and well perfused, no pretibial edema noted. fistula noted on anterior left biceps with good thrill. Neuro: No focal deficits. GCS 15 Abdomen: Abdomen is nondistended with no tenderness to palpation. No guarding, rigidity or peritinic sign. Psych: appropriate mood and affect. Objective Labs 02/02/25 05:59 02/02/25 05:59 Labs: Laboratory Results - last 24 hr 02/02/25 05:59 WBC 6.6 RBC 3.23 L Hgb 9.7 L Hct 30.4 L MCV 94 MCH 30.0 MCHC 31.9 RDW Std Deviation 47.8 H Plt Count 182 Neut % (Auto) 65 Lymph % (Auto) 21 [place] % (Auto) 9 Eos % (Auto) 4 Baso % (Auto) 0 Neut # (Auto) 4.3 Lymph # (Auto) 1.4 [place] # (Auto) 0.6 Eos # (Auto) 0.3 Baso # (Auto) 0.0 Immature Gran # (Auto) 0.02 H Absolute Nucleated RBC 0.00 Immature Gran % 0 Nucleated RBC % 0 Sodium 142 Potassium 5.2 H D Chloride 102 Carbon Dioxide 29.7 Anion Gap 10 BUN 15 Creatinine 5.0 H* D Estim Creat Clear Calc 10.3 L eGFR 9 L* BUN/Creatinine Ratio 3 L Glucose 87 Calculated Osmolality 282 Calcium 8.9 Corrected Calcium 9.2 Phosphorus 6.1 H Magnesium 1.9 Total Bilirubin 0.4 AST 22 ALT 9 L Alkaline Phosphatase 94 Total Protein 6.1 Albumin 3.6 Globulin 2.5 Albumin/Globulin Ratio 1.4 Quality Measures Quality Measures none Assessment & Plan Assessment Current Active Medications: Generic Name Dose Route Start Last Admin Trade Name Freq PRN Reason Stop Dose Admin Acetaminophen 650 mg 01/29/25 16:27 Acetaminophen 325 Mg Tablet PO 02/28/25 16:26 Q6H PRN Fever >101.5 Acetaminophen 650 mg 01/29/25 16:27 Acetaminophen Supp 650 Mg Supp FL 02/28/25 16:26 Q6H PRN PAIN SCALE 1-3 (mild Amlodipine Besylate 10 mg 01/31/25 09:00 02/01/25 08:25 Amlodipine Besylate 5 Mg Tablet PO 03/02/25 08:59 10 mg DAILY SILVANA Administration Atorvastatin Calcium 40 mg 01/31/25 21:00 02/01/25 21:09 Atorvastatin Calcium 20 Mg Tablet PO 03/02/25 20:59 40 mg HS SILVANA Administration Sacubitril-Valsartan 0 ea 01/31/25 09:00 01/31/25 09:02 [Entresto] 97/103 PO 03/02/25 08:59 1 tablet Mg BID SILVANA Administration Dextrose 25 ml 01/29/25 20:43 Dextrose 50%-Water Inj 50 Ml Syringe IV 02/28/25 20:42 Q15MIN PRN BG 50-70 responsive npo pt Dextrose 50 ml 01/29/25 20:43 Dextrose 50%-Water Inj 50 Ml Syringe IV 02/28/25 20:42 Q15MIN PRN BG <50 OR BG <70 & pt unresponsive Glucagon 1 mg 01/29/25 20:43 Glucagon Inj 1 Mg Vial IM Q15MIN PRN BG <70, and no IV access Hydralazine HCl 25 mg 01/31/25 09:00 02/02/25 06:30 Hydralazine Hcl 25 Mg Tablet PO 03/02/25 08:59 Not Given TID SILVANA Albumin Human 25 gm in 100 mls @ 100 mls/min 01/30/25 11:35 Albuminar-25 Ivpb IV PRN PRN DIALYSIS Insulin Human Lispro 0 unit 01/31/25 21:00 02/02/25 07:20 Insulin Lispro (Admelog) 1 Unit/0.01 Ml Unit SC 03/02/25 20:59 Not Given ACHS SILVANA Protocol Metoprolol Succinate 50 mg 01/31/25 09:00 02/01/25 08:25 Metoprolol Succinate Xl 25 Mg Tabcr PO 03/02/25 08:59 50 mg DAILY SILVANA Administration Ondansetron HCl 4 mg 01/29/25 16:27 Ondansetron Inj 2 Mg/Ml Inj 2 Ml IVP 02/28/25 16:26 Q6H PRN NAUSEA OR VOMITING Protocol Pantoprazole Sodium 40 mg 01/30/25 09:00 02/01/25 21:09 Pantoprazole Inj 40 Mg Vial IVP 03/01/25 08:59 40 mg BID SILVANA Administration Plan 65 year-old female with past medical history of ESRD on dialysis MWF with Dr. Roman, DM, HTN, HLD, hyperkalemia who presents to the ED for evaluation of rectal bleeding. Bright red rectal bleeding/diarrhea started at 0100 01/29 with 8-9 additional episodes throughout the day which turned into dark colored in the last episodes. Patient denied any abdominal pain, nausea, vomiting; however, endorsed dizziness. Patient's last colonoscopy was 2 years ago which was normal, per patient. #Left-sided diverticular bleed #Lower GI bleeding #Diverticulosis #Hemorrhoids #Sessile polyp on sigmoid colon Bleeding started 01/29 at 0100 which bright red blood per rectum. 8-9x additional episodes which turned dark colored. No previous episodes. On aspirin 81 at home. On exam, patient is hemodynamically stable with no abdominal tenderness. Vital signs stables. Hemoglobin on admission 11.9 --> 10.4 --> 9.5 --> 9.1 --> 9.7 (02/02) Differentials include but not limited to lower GI bleed such as angiodysplasia, colorectal cancer, internal hemorrhoids, diverticulosis, colonic polyps vs upper GI bleed. Colonoscopy (01/31): hemorrhoids on perianal exam, multiple large-mouthed diverticula found in sigmoid colon and descending colon. Evidence of recent bleeding from the diverticular opening. One large polyp in sigmoid colon which was removed. Mucosal ulceration in transverse colon. Fresh blood seen in the left colon in the midst of severe diverticulosis. Spoke with GI Dr. Velasco who recommended continuation of current liquid diet. Montior CBC and CMP and reassess tomorrow. Patient's diverticular bleeding most likley resolve on its own; however, if persistent bleeding she may benefit from other options such as selective embolization. Plan: - Monitor Hgb, transfusion if drops below 7. - Protonix 40 BID. - Held home aspirin. - Continue full liquid diet #ESRD on dialysis Dialysis sessions on MWF with Dr. Roman. Patient had HD yesterday. K:5.2, Phos: 6.1 Plan: - Renally dosed medications. - Avoid nephrotoxin. #DM Home blood glucose measurement ranging from 180-200. Has not used insulin in 2 months. Finger blood glucose: 70 Blood glucose: 63 Plan: - SSI #HTN Chronic. Plan: - Continue home metoprolol, hydralazine, and amloidipine. - Held Entresto (01/31) because BP was low. #HLD Chronic Plan -Continue Atorvastatin 40 qday. Health Maintenance: Dispo: Admit to med tele DVT prophylaxis: SCDs GI prophylaxis: Panteprazole 40 BID Diet: Full liquid diet Pain mgmt: prn Tylenol Lines: peripheral Code status: Full code Patient plan of care was discussed with the senior resident, Dr. Quiroz, and attending physician, Dr. Jennings. James Santo, DO PGY-1
--- NOTE | 2025-02-02 08:38 | CHAP ---
Patient was visited by a Spiritual Care Volunteer 0n 02/01/2025 between 1000 and 1100 and received comfort, encouragement and/or prayer.
[2025-02-02] MEDS: METOPROLOL SUCCINATE XL 25 MG TABCR 50 MG PO (09:29)
[2025-02-02] MEDS: SOD POLYSTYRENE SULFON SUSP 15 GM/60 ML BTL 30 GM PO (10:22)
--- NOTE | 2025-02-02 10:25 | ESDS_ITS ---
<Statement entered by Mariam Jennings DO - 02/03/25 07:50> I, Mariam Jennings DO, attest that I was physically present for the joseph portions of the service and evaluated the patient with the resident and I reviewed and discussed the case with the resident and agree with the resident's findings and plans of care as documented above <Statement entered by Douglas Croft MD - 02/03/25 06:38> Patient was examined and case was reviewed with team including attending physician. Note reviewed, I agree with most of its contents and agree with the patient's care. Douglas Croft MD PGY-2 Planned Discharge Date 02/02/25 DS: Providers Provider Date of admission: 01/29/25 16:39 Primary care physician: Raleigh Croft MD Admitting Provider: Mariam Jennings DO Attending Provider on Admission: Mariam Jennings DO Consults: 01/29/25 15:41 Consult to Gastroenterology Stat Comment: Lower GI bleed Consulting Provider: Kanwal Velasco 01/29/25 16:31 Consult to Nephrology Routine Comment: GI bleed. ESRD with dialysis MWF. Consulting Provider: Matthew Roman 01/29/25 18:33 Health Equity Referral - Knowledge Deficit Routine Comment: Positive screening for knowledge deficit needs. Health Equity Referral - Transportation Routine Comment: Positive screening for transportation needs. Attending Provider on DC: Dr. Jennings Discharging Provider: Resident Loy Anticipated date of discharge: 02/02/25 DS: Diagnosis Problem List Completed Was Problem List Reviewed/Reconciled?: Yes Hospital Course Hospital Course Hospital course: 65 year-old female with past medical history of ESRD on dialysis MWF with Dr. Roman, DM, HTN, HLD, hyperkalemia who presents to the ED for evaluation of rec eirk bleeding. Bright red rectal bleeding/diarrhea started at 0100 01/29 with 8-9 additional episodes throughout the day which turned into dark colored in the last episodes. Patient denied any abdominal pain, nausea, vomiting; however, endorsed dizziness. Patient's last colonoscopy was 2 years ago which was normal, per patient. On exam, patient was hemodynamically stable with no abdominal tenderness. Vital signs remained stable during her hospitalization. Differentials included but not limited to lower GI bleed such as angiodysplasia, colorectal cancer, internal hemorrhoids, diverticulosis, colonic polyps vs upper GI bleed. Patient's initial Hgb on admission was 11.9, however downtrending to 9.1. GI Dr. Velasco was consulted who recommended colonoscopy which showed hemorrhoids on perianal exam, multiple large-mouthed diverticular found in sigmoid colon and descending colon. Evidence of recent bleeding from the diverticular opening. One large polyp in sigmoid colon which was removed. Mucos al ulceration in transverse colon. Fresh blood seen in the left colon in the midst of severe diverticulosis. Given the colonoscopy findings, it was recommended to continue the full liquid diet and assess for patient's tolerance and also monitor CBC and CMP for any abnormalities. Given the lower GI bleed from diverticulosis, we expected that the bleeding most likely resolve on its own; however, if persistent bleeding she may benefit from other options such as selective embolization. Two days after the colonoscopy, patient's hemoglobin stabilized and started to uptrend to 9.7. Patient denies any more hematochezia or melena. Overall, patient's condition stabilized and improved during her hospitalization. Home aspirin was held due to her recent GI bleeding. Patient did not need any blood transfusions during her hospital course. In regards to her ESRD, nephrology Dr. Roman was consulted. Patient received hemodialysis while in the hospital and electrolytes were monitored and repleted appropriately. Patient's other medical problems were managed accordignly. Of note, patient's home Entresto was held due to hyperkalemia, anuria, and episodes of soft BP. At the time of discharge, patient is in stable condition and tolerating diet and ambulating. All questions answered and ED return precautions given. Patient will need to follow up with their PCP and stogie packer in regards to their hos pitalization within 1 week. Patient's medications were modified and new medications were prescribed as below. #Left-sided diverticular bleed #Lower GI bleeding #Diverticulosis #Hemorrhoids #Sessile polyp on sigmoid colon #ESRD on dialysis #DM #HTN #HLD Follow up with primary care physician within 1 week of discharge Continue with your Hemodialysis as scheduled or as per your Writer Editor You have been prescribed veltassa for your elevated levels of potassium please take this as prescribed Your jardiance entresto and lasix was discontinued as the patient does not make urine, and entresto is contributing to your elevated potassium. Follow up with your bending shed worker in regards to your diuretics and entresto. Should your symptoms recur or worsen patient is instructed to return to the ED. Patient plan of care was discussed with the senior resident, Dr. Quiroz, and attending physician, Dr. Jennings. James Santo, DO PGY-1 Status at Discharge Functional status at discharge: independent ambulation Overall status at discharge: patient is back to baseline Time Spent with Patient Time attestation: Total time spent providing and/or coordinating discharge services: Time spent: Greater than 30 minutes Exam Vital Signs Temp Pulse Resp BP Pulse Ox O2 Del Method O2 Flow Rate 97.2 F 84 18 131/60 H 98 Room Air 2 02/02/25 07:38 02/02/25 09:30 02/02/25 07:38 02/02/25 09:30 02/02/25 07:38 02/02/25 07:38 02/01/25 04:00 Narrative Exam Gen: Well-developed and well-nourished. obese female sitting comfortably on bed. HEENT: NCAT, EOMI, MMM, anicteric conjunctivae. CVS: normal S1 and S2. RRR. No M/R/G. Resp: CTA B/L. No rhonchi, rales, crackles or wheezing. Ext:warm and well perfused, no pretibial edema noted. fistula noted on anterior left biceps with good thrill. Neuro: No focal deficits. GCS 15 Abdomen: Abdomen is nondistended with no tenderness to palpation. No guarding, rigidity or peritinic sign. Psych: appropriate mood and affect Discharge Plan Plan Patient Disposition: HOME (Self Care) Care Plan Goals: Follow up with primary care physician within 1 week of discharge Continue with your Hemodialysis as scheduled or as per your Writer Editor You have been prescribed veltassa for your elevated levels of potassium please take this as prescribed Your jardiance entresto and lasix was discontinued as the patient does not make urine, and entresto is contributing to your elevated potassium. Follow up with your bending shed worker in regards to your diuretics and entresto. Should your symptoms recur or worsen patient is instructed to return to the ED. Prescriptions/Referrals Prescriptions/Med Rec: New Veltassa 1 gram powder in packet 4 g PO QDAY Qty: 60 0RF Continued hydralazine 25 mg Tablet 25 mg PO TID metoprolol succinate 50 mg tablet extended release 24 hr 50 mg PO DAILY ferrous sulfate 325 mg (65 mg iron) tablet 325 mg PO DAILY amlodipine 10 mg tablet 10 mg PO DAILY Held aspirin 81 mg tablet,chewable 1 tab PO DAILY Hold Instructions: Resume on 02/06/25. resume aspirin after 3-4 days Discontinued Jardiance 10 mg tablet 10 mg PO QAM Entresto 97-103 mg tablet 1 tab PO BID furosemide [Lasix] 40 mg tablet 40 mg PO BID Referrals: Raleigh Croft MD [Primary Care Provider] - Patient/Caregiver Discharge Instructions Print Language: Upper Sorbian Stand Alone Forms: [facility] Award Info., Patient Portal Info Letter Discharge Order Discharge Orders: Discharge (Routine); Ordered 02/02/25 Ordered By: Douglas Croft Quality Discharge Quality Measures VTE prophylaxis
--- NOTE | 2025-02-02 20:37 | ESPR_ITS ---
Documentation for date of: 02/02/25 Subjective Subjective Interval history: Late entry for the note Case discussed with internal medicine team no further bleeding Patient has tolerated a regular diet Okay to discharge patient to be followed by the PCP Exam Vital Signs Temp Pulse Resp BP Pulse Ox O2 Del Method O2 Flow Rate 97.2 F 78 18 129/54 L 98 Room Air 2 02/02/25 11:30 02/02/25 11:30 02/02/25 11:30 02/02/25 11:30 02/02/25 11:30 02/02/25 11:30 02/01/25 04:00 Objective Labs 02/02/25 05:59 02/02/25 05:59 Labs: Laboratory Results - last 24 hr 02/02/25 05:59 WBC 6.6 RBC 3.23 L Hgb 9.7 L Hct 30.4 L MCV 94 MCH 30.0 MCHC 31.9 RDW Std Deviation 47.8 H Plt Count 182 Neut % (Auto) 65 Lymph % (Auto) 21 [place] % (Auto) 9 Eos % (Auto) 4 Baso % (Auto) 0 Neut # (Auto) 4.3 Lymph # (Auto) 1.4 [place] # (Auto) 0.6 Eos # (Auto) 0.3 Baso # (Auto) 0.0 Immature Gran # (Auto) 0.02 H Absolute Nucleated RBC 0.00 Immature Gran % 0 Nucleated RBC % 0 Sodium 142 Potassium 5.2 H D Chloride 102 Carbon Dioxide 29.7 Anion Gap 10 BUN 15 Creatinine 5.0 H* D Estim Creat Clear Calc 10.3 L eGFR 9 L* BUN/Creatinine Ratio 3 L Glucose 87 Calculated Osmolality 282 Calcium 8.9 Corrected Calcium 9.2 Phosphorus 6.1 H Magnesium 1.9 Total Bilirubin 0.4 AST 22 ALT 9 L Alkaline Phosphatase 94 Total Protein 6.1 Albumin 3.6 Globulin 2.5 Albumin/Globulin Ratio 1.4 Impressions Impression: Diverticular bleeding left colon stabilized Okay to discharge to be followed by PCP Assessment & Plan A&P Narrative # hematochezia recommendations clear liquid diet GoLytely prep Consent obtained for fiberoptic colonoscopy with possible biopsy possible therapeutic intervention under intravenous moderate sedation tentatively scheduled for tomorrow # End-stage renal disease on hemodialysis Thank you very much for the opportunity to participate in the care of this patient Time Spent With Patient Time: Total time spent is greater than 50% in coordination of care (as documented) at patient's floor/unit and/or counseling patient:
--- NOTE | 2025-02-03 08:15 | CHAP ---
Patient was visited by a Spiritual Care Volunteer on 02/02/2025 between 0900 and 1200 and received comfort, encouragement and/or prayer.
== END 2025-02-02 11:45 | disposition home or self-care (01) | DRG 377 ==
LOC: SERX 16:35 → S3NX 01-30 13:57 → SERHOLD 02-01 06:00
PROVIDERS: Nurse Practitioner Family; Specialist; Student in an Organized Health Care Education/Training Program; Admitting Provider Internal Medicine; PCP Family Medicine; Visit Provider Internal Medicine
PROC: 0DJD8ZZ Inspection of Lower Intestinal Tract, Via Natural or Artificial Opening Endoscopic (ICD-10-PCS; CPT 45378; principal; 2025-01-31 11:00)
DX: K57.31 Diverticulosis of large intestine without perforation or abscess with bleeding (principal); N18.6 End stage renal disease; I12.0 Hypertensive chronic kidney disease with stage 5 chronic kidney disease or end stage renal disease; K63.3 Ulcer of intestine; D12.5 Benign neoplasm of sigmoid colon; Z99.2 Dependence on renal dialysis; E11.22 Type 2 diabetes mellitus with diabetic chronic kidney disease; E78.5 Hyperlipidemia, unspecified; K64.8 Other hemorrhoids; E87.5 Hyperkalemia; K63.5 Polyp of colon; Z79.82 Long term (current) use of aspirin
CPT/HCPCS: 36415; 80053; 80069; 81001; 82270; 83735; 84100; 85014; 85018; 85025; 85610; 85730; 86850; 86900; 86901; 87081; 93005; 93225; 96374; 96376; 99284; A4649; J0696; J2250; J2470; J3010; A9270